=== PATIENT | female | born 1970 | race Caucasian/White ===

== ENCOUNTER 2023-10-08 10:49 | Outpatient (AMB) | payer OTHER, SELFPAY ==
--- NOTE | 2023-10-08 10:50 | A.OFFPC_ITS ---
Vital Signs 10/08/23 11:06 Height 5 ft 4 in Weight 189 lb 2 oz BMI 32.5 BP 104/60 Blood Pressure Location Lt brachial Position Sitting Respiration 16 Pulse 67 Pulse Source Pulse Oximeter Temp 97.9 F Temp Source Oral Pulse Oximetry (%) 95 Oxygen Delivery Method Room Air Intake Visit Reasons: NPV Annual PE Request (takes Medications) Intake Note: patient here for new patient visit and CPE Torch Operator Required: No Is last menstrual period known: No Post menopausal: No Patient : No Allergies ibuprofen Allergy (Mild, Verified 10/08/23 16:10) Unknown amoxicillin Adverse Reaction (Severe, Verified 10/08/23 10:56) Hives co-trimoxazole Allergy (Mild, Uncoded 10/08/23 16:10) Unknown sulpha Allergy (Unknown, Uncoded 10/08/23 10:56) Itching Medication List - Last Reconciled 10/08/23 by Ashia Wetzel, HUMAN RESOURCES DEPARTMENT SUPERVISOR- citalopram 40 mg PO DAILY multivitamin with minerals 10 mL PO DAILY tizanidine 2 mg PO TID Tobacco use date assessed: 10/08/23 Dental Screening Dental Screen Date: 10/08/23 Did you have a dental visit in the last 12 months?: Yes Did you have a dental problem in the last 6 months where you did not have access to dental care?: No Was dental information given to patient?: Patient has dentist HPI HPI Comments History of Present Illness Details 53 y/o F with JERED, MDD, LIZZIE, Leiomyoma o f uterus causing postmenpausal bleeding s/p sleeve gastrectomy, breast reduction, abdominoplasty Health Maintenance: Colon DEXA PAP Mammo Tdap 2008 Specialists: counselor Chiro accupuncture Here today to [facility] care Moved here to [place] in Mar to live closer to [facility] and her . Very limited medical records available to me today. c/o acute on chronic right neck, shoulder and back pain. Reports its been there all my life... no one has been able to figure out the cause. She was recently swimming prior to the current flare and thinks this is the cause. Using massage, stretch, heat, ice, salonpas w/ short lived relief. Thinks she would benefit from a Chiro and Accupuncture referrals. Denies red flag sx. MDD/LIZZIE. Currently on celexa. Has been on this for 8 years. Is active w co unselor. Denies SI/HI. Admits a lot of mental health struggles around her weight. Life long struggle. Even after wt loss surgery does not feel happy. When asked why she wants to lose weight she stated to be healthy and live a long life. Also mentions physical limitations d/t her wt. 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 Has never been on any other meds for mood. Finally, she is on cytomel and levothyroxine w/o a dx of hypothyroid. She has not had thyroid surgery. States she was seeing a hormone specialist who put her on this treatment. States last TSH done 09/04/23 was low . She is having increased hunger, dry eyes and feeling itchy over the last few months. Exam: awake alert NAD Tearful when talking about wt Neck FROM thyroid nonpalp RRR LS CTAB Pain w palp over R SI joint, no spinal tenderness, pain over right scap and bilat traps with palp, no defomity, nonfocal neuro exam Plan Chiropracter and accupuncture referrals placed. Labs from today WNL except TSH < 0.01, T4 0.57; LDL, Vit C and Zinc pending at this time. Repeat thyroid labs in 6 weeks. When euthyroid, can discuss potentially adding Wellbutrin to help her anxiety, eating and wt concerns. RTO 6 weeks with labs done prior. Sooner PRN Message sent via portal at 1600: Hi Grace Labs show a completely suppressed thyroid. Please stop your thyroid medications. I would like to repeat them [they are non- fasting] in 6 weeks. The lab order is in the system, you can stop into the lab to get them done in 6 weeks. Otherwise, so far things look good.' I want to wait to see how you feel after the thyroid normalizes before starting any medications. Ashia Negrete Total time spent caring for the patient today was 46 minutes. This includes time spent before the visit reviewing the chart, time spent during the visit, and time spent after the visit on documentation [facility] Medical History (Updated 10/08/23 @ 16:21 by Ashia Wetzel, HUMAN RESOURCES DEPARTMENT SUPERVISOR-) Depression Headache Palpitation Sinusitis Surgical History (Updated 10/08/23 @ 12:24 by Zoë Sanchez) Gastric bypass status for obesity Hx of breast reduction, elective Family History (Updated 10/08/23 @ 12:18 by Zoë Sanchez) Mother Alcohol abuse FH: mental illness Cancer Father FH: mental illness High cholesterol Cancer Sister FH: mental illness Maternal Grandmother Cancer Social History Housing: House Patient Tobacco Use Status: Never used Tobacco e-Cigarette/Vaping Use: Never Used Second Hand Smoke Exposure: No service: No Current occupational status: retired Current occupational exposures/hazards: No Cognitive needs: No Hearing needs: No Vision needs: Yes Questionnaire PHQ-9 Over the last 2 weeks, how often have you been bothered by any of the following problems? 1. Little interest or pleasure in doing things: not at all 2. Feeling down, depressed, or hopeless: not at all 3. Trouble falling or staying asleep, or sleeping too much: not at all 4. Feeling tired or having little energy: several days 5. Poor appetite or overeating: more than half the days 6. Feeling bad about yourself - or that you are a failure or have let yourself or your family down: not at all 7. Trouble concentrating on things, such as reading the newspaper or watching television: not at all 8. Moving or speaking so slowly that other people could have noticed. Or the opposite - being so fidgety or restless that you have been moving around a lot more than usual: not at all 9. Thoughts that you would be better off or of hurting yourself in some way: not at all Total score: 3 Depression Screening Interpretation: Negative Depression Screening Done: Yes 77565 - PHQ-9 Billing: Yes Source: Developed by Drs. Pranav Quinones, Mally Gutierrez, Luís James and colleagues, with an educational elizabeth from [employer] Thrive Questionnaire Date Thrive assessed: 10/08/23 I am a: Patient What is your living situation today?: I have a steady place to live Within the past 12 months, did the food you bought not last and you didn't have the money to get more?: Never true Within the past 12 months, did you worry whether your food would run out before you got money to buy more?: Never true Do you have trouble paying for medicines?: No Do you have trouble getting transportation to medical appointments?: No Do you have trouble paying your heating and electricity bill?: No Do you have trouble taking care of your child, family member or friend?: No Do you have trouble with day-to-day activities such as bathing, preparing meals, shopping, managing finances, etc.?: No Are you currently unemployed and looking for a job?: No Are you interested in more education?: No THRIVE Score: 0 AUDIT C Alcohol Use Questionnaire (AUDIT-C) 1. How often do you have a drink containing alcohol?: 2-3 times a week 2. How many drinks containing alcohol do you have on a typical day when you are drinking?: 1 or 2 3. How often do you have six or more drinks on one occasion?: Never Total Score: 3 Score Reviewed/Action Taken: Yes LIZZIE-7 AMB Questionnaire LIZZIE-7 Date LIZZIE - 7 assessed: 10/08/23 Feeling nervous, anxious, or on edge: 2 = More than half the days Not being able to stop or control worryin = Several days Worrying too much about different things: 1 = Several days Trouble relaxin = Several days Being so restless that it is hard to sit still: 1 = Several days Becoming easily annoyed or irritable: 1 = Several days Feeling afraid as if something awful might happen: 1 = Several days Total LIZZIE-7 score (0-4 normal; 5-9 mild; 10-14 moderate; 15-21 severe): 8 Source: Developed by Drs. Pranav Quinones, Mally Gutierrez, Luís James and colleagues, with an educational elizabeth from [employer] LIZZIE-7 Assessment Billing LIZZIE-7 Assessment Tool: LIZZIE-7 Assessment 49719 Physical exam (Primary Care) Vital Signs: Last Vital Signs Temp 97.9 F 10/08/23 11:06 Pulse 67 10/08/23 11:06 Resp 16 10/08/23 11:06 BP 104/60 10/08/23 11:06 Pulse Ox 95 10/08/23 11:06 Oxygen Delivery Method Room Air 10/08/23 11:06 BMI result Body Mass Index 32.5 BMI Assessment/Plan discussion: High BMI High, discussed plan: lifestyle Tobacco/Smoking Status: Tobacco use Status Tobacco use date assessed 10/08/23 10/08/23 11:01 Patient Tobacco Use Status Never used Tobacco 10/08/23 11:01 e-Cigarette/Vaping Use Never Used 10/08/23 11:01 PHQ-9: PHQ-9 Score PHQ-9: Total score 3 10/08/23 12:10 Depression Screening Interpretation: Negative Thrive Assessment: Date of Thrive Assessment Date Thrive assessed 10/08/23 10/08/23 12:00 Assessment and Plan Assessment & Plan (1) Neck pain: Code(s): M54.2 - Cervicalgia (2) Low back pain: Code(s): M54.50 - Low back pain, unspecified Qualifiers: Chronicity: chronic Back pain laterality: right Sciatica presence: without sciatica Qualified Code(s): M54.50 - Low back pain, unspecified; G89.29 - Other chronic pain (3) S/P gastric sleeve procedure: Code(s): Z90.3 - Acquired absence of stomach [part of] (4) Low TSH level: Code(s): R79.89 - Other specified abnormal findings of blood chemistry (5) MDD (major depressive disorder), recurrent episode: Code(s): F33.9 - Major depressive disorder, recurrent, unspecified Qualifiers: Major depression episode severity: mild Qualified Code(s): F33.0 - Major depressive disorder, recurrent, mild (6) LIZZIE (generalized anxiety disorder): Code(s): F41.1 - Generalized anxiety disorder (7) Leiomyoma of uterus: Code(s): D25.9 - Leiomyoma of uterus, unspecified Qualifiers: Uterine leiomyoma location: unspecified location Qualified Code(s): D25.9 - Leiomyoma of uterus, unspecified Orders: Orders TSH reflex Free T4 Today Z90.3 - Acquired absence of stomach [part of] Complete Blood Count no Diff Today Z90.3 - Acquired absence of stomach [part of] Hemoglobin A1c Today Z90.3 - Acquired absence of stomach [part of] Zinc Today Z90.3 - Acquired absence of stomach [part of] Phosphorus Today Z90.3 - Acquired absence of stomach [part of] TSH reflex Free T4 11/12/23 R79.89 - Other specified abnormal findings of blood chemistry Comprehensive Met. Panel Today Z90.3 - Acquired absence of stomach [part of] LDL Cholesterol Direct Today Z90.3 - Acquired absence of stomach [part of] Vitamin B12 and Folate Today Z90.3 - Acquired absence of stomach [part of] IRON PROFILE Today Z90.3 - Acquired absence of stomach [part of] Microalbumin, Random (w Creat) Today Z90.3 - Acquired absence of stomach [part of] Vitamin D 25-OH Total Today Z90.3 - Acquired absence of stomach [part of] Vitamin C Today Z90.3 - Acquired absence of stomach [part of] Magnesium Today Z90.3 - Acquired absence of stomach [part of] Referrals Chiropractic Referral M54.2 - Cervicalgia, M54.50 - Low back pain, unspecified Patient Instructions: CLINIC Alternative Medicines -- accupuncture Codi Holcomb [phone] Walk-In Care (Urgent Care): We Make it Easy Walk-in for urgent medical issues such as: ? Seasonal Allergies ? Insect Bites ? Cough ? Diarrhea ? Acute Asthma Attacks ? Back, Knee or Joint Pain ? Ear Infection ? Fever without a Rash ? Headaches ? Nausea ? [place], Rash or Skin Irritation ? Sore Throat ? Sports Physicals ? Vomiting Most insurances are accepted. Patients do not need to be part of the [facility] to seek care at the walk-in clinic. Locations [facility] , [place] [address] ? [phone] [facility] [facility] in [place] provides services to ages 18 and over. Open Friday-Friday: 8 a.m. to 5 p.m. and Friday: 9 a.m. to 3 p.m.* *Hours may vary due to staffing availability. To confirm Walk-In Care hours in [place], please call [phone]. [address] [place] [address] ? [phone] [facility] in [place] provides services to ages 12 and over. Open Friday-Friday: 8 a.m. to 5 p.m. Hours may vary due to staffing availability. To confirm Walk-In Care hours in [place], please call [phone]. LABORATORY SERVICES: [facility] Lab ? Primary Location [address] [place] [address] Friday through Friday 6:00 AM ? 5:00 PM Friday 7:00 AM ? 11:00 AM* [phone] [facility] Lab is centrally located near the front entrance of the [facility] for easy outpatient access. Convenient parking is provided for outpatients. *Hours may vary due to staffing availability. To confirm Laboratory hours for any location, please call [phone]. Offsite Location For your convenience, we offer offsite laboratory draw stations at the following locations: [address] [place] [address] ? [facility] [address] [facility], [address] Friday through Friday 7:30 AM ? 1:00 PM* [phone] *Hours may vary due to staffing availability. To confirm Laboratory hours for any location, please call [phone]. [place] ? [address] Friday through Friday 6:00 AM ? 3:30 PM* Friday 6:30 AM ? 3 PM* [phone] *Hours may vary due to staffing availability. To confirm Laboratory hours for any location, please call [phone] [place] [address] Friday through Friday 7:30 AM ? 4:00 PM* [phone] *Hours may vary due to staffing availability. To confirm Laboratory hours for any location, please call [phone] [place] [address] Friday through 9:00 AM ? 4:00 PM* *Hours may vary due to staffing availability. To confirm Laboratory hours for any location, please call [phone]. Appointments are not necessary. Walk-ins are welcome. Like all the departments throughout the [facility], our Lab undergoes frequent reviews to ensure the quality and accuracy of test results, and our staff takes special pride in its status as a nationally accredited facility. Patient Portal: ONE PATIENT. ONE RECORD. BETTER CARE. [facility] has a fully integrated, cutting-edge mobile electronic health information system that has revolutionized the way we care for our patients and manage our organization. This system improves communication and coordination enabling us to provide safe, higher-quality care, and an overall positive experience for staff and patients. Our first priority, as always, is to deliver the highest quality care possible. The system is running in the background supporting that priority. This portal is for all [facility] services and practices. If you are experiencing any technical difficulties with enrolling or logging into the Patient Portal please complete the [facility] Patient Portal Technical Support Form. [facility] now offers a new secure on-line interactive tool for patients to review their health information ? Patient Portal. This interactive web portal will enable patients and their families to take an active role in their care by providing easy, secure access to their health information via the internet. The Patient Portal provides patients with instant access to their health information, including laboratory results, medications, allergies, demographic information, visit history, and more. In addition to managing their own care, parents and health care proxies with authorized consent will appreciate the ability to access the records of those individuals for whom they provide care. Please note: if you wish to gain access (Proxy) to another patient?s portal, you will be required to come to the Medical Records Department in person at [facility]. Both the patient giving proxy access and the proxy will need to provide photo identification and complete the appropriate authorization. The Patient Portal also allows track their appointments online. The [facility] Patient Portal also saves patients time by allowing them to submit updates to their demographic and contact information prior to their visits. Portal email notifications will also alert patients to any new activity on their portal, such as test results and new appointments. In order to initially enroll in the [facility] Patient Portal, you will need to enter some required information including the following: ? your [facility] Medical Record number ? your personal home email address ? name ? date of Please note: In order to enroll in the [facility] Patient Portal, we need to have your email address on file in your electronic medical record. The email address needs to be specific for one person (yourself) in order for your Portal enrollment to be successful. You can update your email address in person with our Registration staff when you are registering for a hospital visit. Otherwise, you will need to come to the Health Information Management (Medical Records) Department at [facility]. We are open from Friday ? Friday from 7:30 a.m. ? 4:30 p.m. You will be required to present a photo id. Once you have successfully enrolled in the Patient Portal, you will receive a one-time user id and password for the Portal, sent to your email address. This will allow you to log into the Patient Portal within 99 hrs and reset your own logon id and password, and define personal security questions. Once your permanent login and password have been set, you can log into the [facility] Patient Portal at any time via the blue button above or from the Portal Logon button on any page of the [facility] website. [facility] encourage all of our patients to enroll in Patient Portal as it presents a valuable opportunity for patients and their families to actively participate in their care and stay healthy Welcome to [facility]. We look forward to working with you. Coding Level of Care Code New Pt Level 4 (64618) Diagnoses Neck pain M54.2 Chronic right-sided low back pain without sciatica M54.50; G89.29 Chronicity: chronic Back pain laterality: right Sciatica presence: without sciatica S/P gastric sleeve procedure Z90.3 Low TSH level R79.89 Mild episode of recurrent major depressive disorder F33.0 Major depression episode severity: mild LIZZIE (generalized anxiety disorder) F41.1 Uterine leiomyoma, unspecified location D25.9 Uterine leiomyoma location: unspecified location Additional Codes LIZZIE-7 Assessment Billing - LIZZIE-7 Assessment Tool: LIZZIE-7 Assessment [id number] ([id number])
[2023-10-08 11:06] VITALS: BP 104/60; PULSE 67; RESP 16; TEMP 36.6; O2SAT 95; BMI 32.5
== END 2023-10-08 11:45 | disposition home or self-care (01) ==
PROVIDERS: PCP Nurse Practitioner Family; Visit Provider Nurse Practitioner Family
DX: M54.2 Cervicalgia (principal); M54.50 Low back pain, unspecified; G89.29 Other chronic pain; Z90.3 Acquired absence of stomach [part of]; R79.89 Other specified abnormal findings of blood chemistry; F33.0 Major depressive disorder, recurrent, mild; F41.1 Generalized anxiety disorder; D25.9 Leiomyoma of uterus, unspecified
CPT/HCPCS: 99204

== ENCOUNTER 2023-10-08 12:12 | Outpatient (REF) | payer OTHER, SELFPAY ==
[2023-10-08 13:34] LABS: Hematocrit 38.8 % (37.0-47.0); Hemoglobin 13.2 g/dl (12.0-16.0); Mean Corpuscular Hemoglobin 29.4 pg (27.0-33.0); Mean Corpuscular Volume 86.4 fL (80.0-98.0); Mean Platelet Volume 9.6 fL (9.4-12.3); Platelet Count 276 X10*3/uL (160-400); Red Blood Count 4.49 X10*6/uL (4.20-5.50); Red Cell Distribution Width 11.9 % (11.0-16.0); White Blood Count 5.4 X10*3/uL (4.8-10.8)
[2023-10-08 14:07] LABS: Estimated Average Glucose 94 mg/dL; Hemoglobin A1c % 4.9 % (<6.0)
[2023-10-08 14:18] LABS: Creatinine Urine 87.17 mg/dL; Microalbum/Creatinine Ratio Ur 6.8 ug/mg cr (<30)
[2023-10-08 14:24] LABS: Alanine Aminotransferase 23 U/L (0-31); Albumin Level 4.6 g/dL (3.5-5.0); Alkaline Phosphatase 61 U/L (39-117); Anion Gap 12 (12-20); Aspartate Amino Transferase 19 U/L (5-31); Bilirubin Total 0.3 mg/dL (0.0-1.0); Blood Urea Nitrogen 23 mg/dL (9-16); Calcium 9.8 mg/dL (8.4-10.2); Carbon Dioxide 27 mmol/L (22-29); Chloride 107 mmol/L (96-108); Estimated Glomerular Filt Rate > 60; Glucose Random 100 mg/dL (60-115); Iron 86 mcg/dL (30-160); Magnesium 2.3 mg/dL (1.6-2.6); Percent Iron Saturation 32 % (15-50); Phosphorus 4.5 mg/dL (2.7-4.5); Potassium 4.1 mmol/L (3.3-5.1); Sodium 142 mmol/L (135-145); TSH reflex Free T4 < 0.01 uIU/mL (0.32-4.0); Total Iron Binding Capacity 271 mcg/dL (228-428); Total Protein 7.3 g/dL (6.5-8.0); Unsaturated Iron Binding 185 ug/dL; Vitamin D 25-OH Total 54.7 ng/mL (>30)
[2023-10-08 14:30] LABS: Folate 13.4 ng/mL (> or = 4.0); Vitamin B12 535 pg/mL (200-900)
[2023-10-08 15:16] LABS: Free T4 (Free Thyroxine) 0.57 ng/dL (0.71-1.85)
[2023-10-09 13:28] LABS: LDL Cholesterol Direct 123 mg/dL (<100)
[2023-10-11 00:39] LABS: Zinc 63 mcg/dL (60-130)
[2023-10-13 12:29] LABS: Vitamin C 1.9 mg/dL (0.3-2.7)
== END 2023-10-08 12:13 | disposition home or self-care (01) ==
LOC: HO.LAB 12:12
PROVIDERS: PCP Nurse Practitioner Family; Visit Provider Nurse Practitioner Family
DX: Z90.3 Acquired absence of stomach [part of] (principal); Z13.1 Encounter for screening for diabetes mellitus
CPT/HCPCS: 36415; 80053; 82043; 82180; 82306; 82570; 82607; 82746; 83036; 83540; 83721; 83735; 84100; 84439; 84443; 84630; 85027

== ENCOUNTER 2023-11-17 07:32 | Outpatient (REF) | payer BC, SELFPAY | END 2023-11-17 07:33 | disposition home or self-care (01) | LOC: HO.LAB 07:32 | PROVIDERS: PCP Nurse Practitioner Family; Visit Provider Nurse Practitioner Family | DX: R79.89 Other specified abnormal findings of blood chemistry (principal) | CPT/HCPCS: 36415; 84443 ==

== ENCOUNTER 2023-11-18 09:08 | Outpatient (AMB) | payer BC, SELFPAY ==
--- NOTE | 2023-11-18 09:10 | A.OFFPC_ITS ---
Vital Signs 11/18/23 09:14 Height 5 ft 4 in Weight 199 lb BMI 34.2 BP 110/62 Blood Pressure Location Lt brachial Position Sitting Respiration 14 Pulse 61 Pulse Source Pulse Oximeter Pulse Oximetry (%) 97 Oxygen Delivery Method Room Air Intake Visit Reasons: 6 weeks 30 min fu labs/thyroid/anxiety Intake Note: follow up on labs, thyroid and anxiety Allergies ibuprofen Allergy (Mild, Verified 11/18/23 09:13) Unknown amoxicillin Adverse Reaction (Severe, Verified 11/18/23 09:13) Hives co-trimoxazole Allergy (Mild, Uncoded 10/08/23 16:10) Unknown sulpha Allergy (Unknown, Uncoded 10/08/23 10:56) Itching Medication List - Last Reconciled 11/18/23 by MICHAEL Dyer- citalopram 40 mg PO DAILY multivitamin with minerals 10 mL PO DAILY tizanidine 2 mg PO TID Tobacco use date assessed: 11/18/23 Dental Screening Dental Screen Date: 11/18/23 Did you have a dental visit in the last 12 months?: Yes Did you have a dental problem in the last 6 months where you did not have access to dental care?: No Was dental information given to patient?: Patient has dentist HPI HPI Comments History of Present Illness Details 53 y/o F with JERED, MDD, LIZZIE, Leiomyoma o f uterus causing postmenpausal bleeding, chronic neck back and shoulder pain, s/p sleeve gastrectomy, breast reduction, abdominoplasty Health Maintenance: Colon DEXA PAP Mammo Tdap 2008 Specialists: counselor Chiro Here today to fu on labs and to discuss treatments to help with anxiety and weight. Lab review: Labs from 10/08/23 WNL except TSH < 0.01, T4 0.57; LDL, Vit C and Zinc WNL She stopped her thyroid supplements. Repeat TSH normal 1.3 11/17/2023 Since stopping she reports that for she felt a little tired. However this has improved. She was complaining of itchiness which has improved as well. The dry eye complaint is resolved. She also notes some mild improvement in her i ncreased hunger. She has increased protein and fiber in her diet to aid in weight loss. Clinically she has had some weight gain. Discuss starting bupropion to help. She is interested in this. Chronic pain: Chiro and Accupuncture referral placed in the last office visit; went to chiro since last visit + relief. Did try accupuncture w/o relief. MDD/LIZZIE: Continues on citalopram 40 mg daily. Symptoms continue to be present. Exam: awake alert NAD Tearful when talking about wt thyroid nonpalp RRR LS CTAB Plan Start Wellbutrin XL 150 mg to help her anxiety, eating and wt concerns. Educated about the potential side effect of increased anxiety. Educated to notify me if this happens. Continue taking the Celexa. Continue without thyroid supplements as you are euthyroid without any medica tions Continue follow up with chiropractic medicine Please bring your old records to the next appt so that i can review them and place health maintenance orders Return to the office in 6-8 weeks to follow up on the Wellbutrin start, sooner as needed This note is constructed using voice recognition software. While every effort has been made to ensure accuracy in psychiatric registered nurse, still errors may have been included Sometimes, these errors may affect the content or meaning of the given sentence . [facility] Medical History (Updated 11/18/23 @ 09:45 by Ashia Wetzel [facility]) Depression Headache Palpitation Sinusitis Surgical History (Updated 10/08/23 @ 12:24 by Zoë Sanchez) Gastric bypass status for obesity Hx of breast reduction, elective Family History (Updated 10/08/23 @ 12:18 by Zoë Sanchez) Mother Alcohol abuse FH: mental illness Cancer Father FH: mental illness High cholesterol Cancer Sister FH: mental illness Maternal Grandmother Cancer Social History Housing: House Patient Tobacco Use Status: Never used Tobacco e-Cigarette/Vaping Use: Never Used Second Hand Smoke Exposure: No service: No Current occupational status: retired Current occupational exposures/hazards: No Cognitive needs: No Hearing needs: No Vision needs: Yes Questionnaire PHQ-9 Over the last 2 weeks, how often have you been bothered by any of the following problems? 1. Little interest or pleasure in doing things: not at all 2. Feeling down, depressed, or hopeless: not at all 3. Trouble falling or staying asleep, or sleeping too much: not at all 4. Feeling tired or having little energy: several days 5. Poor appetite or overeating: several days 6. Feeling bad about yourself - or that you are a failure or have let yourself or your family down: not at all 7. Trouble concentrating on things, such as reading the newspaper or watching television: not at all 8. Moving or speaking so slowly that other people could have noticed. Or the opposite - being so fidgety or restless that you have been moving around a lot more than usual: not at all 9. Thoughts that you would be better off or of hurting yourself in some way: not at all Total score: 2 Depression Screening Interpretation: Negative Depression Screening Done: Yes 47825 - PHQ-9 Billing: Yes Source: Developed by Drs. Pranav Quinones, Mally Gutierrez, Luís James and colleagues, with an educational elizabeth from [employer]. Thrive Questionnaire Date Thrive assessed: 11/18/23 I am a: Patient What is your living situation today?: I have a steady place to live Within the past 12 months, did the food you bought not last and you didn't have the money to get more?: Never true Within the past 12 months, did you worry whether your food would run out before you got money to buy more?: Never true Do you have trouble paying for medicines?: No Do you have trouble getting transportation to medical appointments?: No Do you have trouble paying your heating and electricity bill?: No Do you have trouble taking care of your child, family member or friend?: No Do you have trouble with day-to-day activities such as bathing, preparing meals, shopping, managing finances, etc.?: No Are you currently unemployed and looking for a job?: No Are you interested in more education?: No Please select the resources that you would like help with: None THRIVE Score: 0 LIZZIE-7 AMB Questionnaire LIZZIE-7 Date LIZZIE - 7 assessed: 11/18/23 Feeling nervous, anxious, or on edge: 0 = Not at all Not being able to stop or control worryin = Not at all Worrying too much about different things: 0 = Not at all Trouble relaxin = Not at all Being so restless that it is hard to sit still: 0 = Not at all Becoming easily annoyed or irritable: 0 = Not at all Feeling afraid as if something awful might happen: 0 = Not at all Total LIZZIE-7 score (0-4 normal; 5-9 mild; 10-14 moderate; 15-21 severe): 0 Source: Developed by Drs. Pranav Quinones, Mally Gutierrez, Luís James and colleagues, with an educational elizabeth from [employer]. LIZZIE-7 Assessment Billing LIZZIE-7 Assessment Tool: LIZZIE-7 Assessment 63180 Physical exam (Primary Care) Vital Signs: Last Vital Signs Pulse 61 11/18/23 09:14 Resp 14 11/18/23 09:14 BP 110/62 11/18/23 09:14 Pulse Ox 97 11/18/23 09:14 Oxygen Delivery Method Room Air 11/18/23 09:14 BMI result Body Mass Index 34.2 Tobacco/Smoking Status: Tobacco use Status Tobacco use date assessed 11/18/23 11/18/23 09:14 Patient Tobacco Use Status Never used Tobacco 11/18/23 09:12 e-Cigarette/Vaping Use Never Used 11/18/23 09:12 PHQ-9: PHQ-9 Score PHQ-9: Total score 2 11/18/23 09:19 Depression Screening Interpretation: Negative Thrive Assessment: Date of Thrive Assessment Date Thrive assessed 11/18/23 11/18/23 09:19 Assessment and Plan Assessment & Plan (1) LIZZIE (generalized anxiety disorder): Code(s): F41.1 - Generalized anxiety disorder (2) MDD (major depressive disorder), recurrent episode: Code(s): F33.9 - Major depressive disorder, recurrent, unspecified Qualifiers: Major depression episode severity: mild Qualified Code(s): F33.0 - Major depressive disorder, recurrent, mild (3) Low TSH level: Code(s): R79.89 - Other specified abnormal findings of blood chemistry (4) Obesity (BMI 30.0-34.9): Code(s): E66.9 - Obesity, unspecified Medications: New bupropion HCl XL 150 mg PO QAM 90 tabs 0RF Coding Level of Care Code Est Pt Level 3 (80623) Diagnoses LIZZIE (generalized anxiety disorder) F41.1 Mild episode of recurrent major depressive disorder F33.0 Major depression episode severity: mild Low TSH level R79.89 Obesity (BMI 30.0-34.9) E66.9 Additional Codes LIZZIE-7 Assessment Billing - LIZZIE-7 Assessment Tool: LIZZIE-7 Assessment 31971 ([id number])
[2023-11-18 09:14] VITALS: BP 110/62; PULSE 61; RESP 14; O2SAT 97; BMI 34.2
== END 2023-11-18 09:40 | disposition home or self-care (01) ==
PROVIDERS: PCP Nurse Practitioner Family; Visit Provider Nurse Practitioner Family
DX: R79.89 Other specified abnormal findings of blood chemistry (principal); E66.9 Obesity, unspecified; Z68.34 Body mass index [BMI] 34.0-34.9, adult; F33.0 Major depressive disorder, recurrent, mild; F41.1 Generalized anxiety disorder
CPT/HCPCS: 96127; 99213

== ENCOUNTER 2024-01-07 09:14 | Outpatient (AMB) | payer BC, SELFPAY ==
--- NOTE | 2024-01-07 07:54 | A.OFFPC_ITS ---
Vital Signs 01/07/24 09:19 Height 5 ft 4 in Weight 199 lb BMI 34.2 BP 118/68 Blood Pressure Location Lt brachial Position Sitting Respiration 13 Pulse 68 Pulse Source Pulse Oximeter Pulse Oximetry (%) 97 Oxygen Delivery Method Room Air Intake Visit Reasons: 6-8 weeks 30 min fu start wellbutrin Intake Note: follow up Allergies ibuprofen Allergy (Mild, Verified 01/07/24 09:26) Unknown amoxicillin Adverse Reaction (Severe, Verified 01/07/24 09:26) Hives co-trimoxazole Allergy (Mild, Uncoded 10/08/23 16:10) Unknown sulpha Allergy (Unknown, Uncoded 10/08/23 10:56) Itching Medication List - Last Reconciled 01/07/24 by Ashia Wetzel, FOOD AND BEVERAGE COORDINATOR- bupropion HCl XL 150 mg PO QAM citalopram 40 mg PO DAILY multivitamin with minerals 10 mL PO DAILY tizanidine 2 mg PO TID Tobacco use date assessed: 11/18/23 Dental Screening Dental Screen Date: 11/18/23 HPI HPI Comments History of Present Illness Details 53 y/o F with JERED, MDD, LIZZIE, Leiomyoma o f uterus causing postmenpausal bleeding (US 2017), chronic neck back and shoulder pain, obesity mild to moderate l4l5 and l5s1 disc space narrowing, ,ild l3l4 disc space narrowing suggestive of DDD Xray 10/18/2014 s/p sleeve gastrectomy, breast reduction, abdominoplasty Health Maintenance: Colon DEXA PAP 04/19/08 repeat 3 years 2013 wn, 2016 wnl endometrial bx mild proliferative endometreium, pap 2018 wnl, pap 2021 wnl Mammo 04/21/28 L breast US with core bx benign nodular fibroademomatoid changes, routine surveillance, 08/31/12 birads 1, 10/18/2014 WNL, 2016 WNL, 12/2017 wnl, 2020 wnl, 2021, 02/17/23 normal Tdap 2009 Flu 01/07/24 Zoster series complete Specialists: counselor Chiro Here today for 8 week fu on Wellbutrin start to help wt loss and mood. Taking in the AM as directed. In the last 3 weeks, has noticed reduced food noise. Wt is stable. Is having hot flashes which is new since stopping thyroid meds. Not feeling increasingly anxious. Does have more energy. Cont on celexa Medical records rec'd but not yet reviewed by me. I will do this after hours and update her on HM items via the portal & order then accordingly Would like flu shot today Needs refill on zanaflex. Exam: awake alert NAD Tearful when talking about wt thyroid nonpalp RRR LS CTAB Plan Increase Wellbutrin XL 150 mg to 300mg help her anxiety, eating and wt concerns. Educated about the potential side effect of increased anxiety. Educated to notify me if this happens. Continue taking the Celexa. Refill on zanaflex sent Flu admin today Return to the office in 8 weeks to follow up on the Wellbutrin increase, sooner as needed Portal message to patient: Hi, Here is what i found after looking at your records. Last Mammogram 02/2023 So would be due 02/2024 Pap 02/2022 normal, repeat 3 years (this would be an ObGyn referral) I did not find a colonoscopy or Bone Density. Tdap vaccine 2008. Due every 10 years. If you are ok with me ordering Mammogram, Colonoscopy , ObGyn referral, bone density test I will do that now. For the Tdap vaccine, we can up that when you come in next, if interested. Please send me portal message back. Ashia Rowley reply at close of note. will update once i hear back from her. This note is constructed using voice recognition software. While every effort has been made to ensure accuracy in retail cosmetics sales counter manager, still errors may have been included Sometimes, these errors may affect the content or meaning of the given sentence . Total time spent caring for the patient today was 30 minutes. This includes time spent before the visit reviewing the chart, time spent during the visit, and time spent after the visit on documentation . [facility] Medical History (Updated 11/18/23 @ 09:45 by Ashia Wetzel, [facility]) Depression Headache Palpitation Sinusitis Surgical History (Updated 10/08/23 @ 12:24 by Zoë Sanchez MA) Gastric bypass status for obesity Hx of breast reduction, elective Family History (Updated 10/08/23 @ 12:18 by Zoë Sanchez MA) Mother Alcohol abuse FH: mental illness Cancer Father FH: mental illness High cholesterol Cancer Sister FH: mental illness Maternal Grandmother Cancer Social History Housing: House Patient Tobacco Use Status: Never used Tobacco e-Cigarette/Vaping Use: Never Used Second Hand Smoke Exposure: No service: No Current occupational status: retired Current occupational exposures/hazards: No Cognitive needs: No Hearing needs: No Vision needs: Yes Questionnaire Thrive Questionnaire Date Thrive assessed: 11/18/23 LIZZIE-7 AMB Questionnaire LIZZIE-7 Date LIZZIE - 7 assessed: 11/18/23 Source: Developed by Drs. Pranav Quinones, Mally Gutierrez, Luís James and colleagues, with an educational elizabeth from [employer]. Physical exam (Primary Care) Vital Signs: Last Vital Signs Pulse 68 01/07/24 09:19 Resp 13 01/07/24 09:19 BP 118/68 01/07/24 09:19 Pulse Ox 97 01/07/24 09:19 Oxygen Delivery Method Room Air 01/07/24 09:19 BMI result Body Mass Index 34.2 Tobacco/Smoking Status: Tobacco use Status Tobacco use date assessed 11/18/23 01/07/24 07:54 Patient Tobacco Use Status Never used Tobacco 01/07/24 07:54 e-Cigarette/Vaping Use Never Used 01/07/24 07:54 Thrive Assessment: Date of Thrive Assessment Date Thrive assessed 11/18/23 01/07/24 07:54 Office Procedures Flu Questionnaire Does the patient have a severe egg allergy?: No Does the patient have severe life threatening allergies?: No Does the patient have a fever or illness today?: No Has the patient ever had Guillain-Mohler Syndrome?: No Has the patient ever had any past reaction to a flu shot?: No Office Procedure Misc Details: G0449 15 MIN OBESITY EDU Office Procedure Billing Code: AMB Procedure Billing Code (G0449 15 MIN OBESITY EDU ) Immunizations Fluarix Triv 5806-7035 (PF) 45 mcg (15 mcg x 3)/0.5 mL IM syringe Performing Provider: PAOLA Dyer [place] [facility] Administered by: Rebekah Julio RN on 01/07/24 09:45 Dose Route Admin Location Dispensed Lot Number Expiration Date [facility] Paralegal Specialist 0.5 mL IM Right Deltoid 0.5 mL [id number] 09/06/24 49981-254-19 [facility] Given Date VIS Provided VIS Publication Date 01/07/24 Single Vaccine 20 Eligibility Eligibility Date Funding Source Not [facility] Eligible 01/07/24 Private Coding Level of Care Code Est Pt Level 4 (94193) Complex EM visit Add On G2211 Diagnoses Obesity (BMI 30.0-34.9) E66.9 LIZZIE (generalized anxiety disorder) F41.1 Mild episode of recurrent major depressive disorder F33.0 Major depression episode severity: mild Chronic right-sided low back pain without sciatica M54.50; G89.29 Back pain laterality: right Chronicity: chronic Sciatica presence: without sciatica CPT Codes Office Procedure - Office Procedure Billing Code: AMB Procedure Billing Code ([id number]) Assessment & Plan Assessment & Plan (1) Obesity (BMI 30.0-34.9): Code(s): E66.9 - Obesity, unspecified Category: Medical Plan: . (2) LIZZIE (generalized anxiety disorder): Code(s): F41.1 - Generalized anxiety disorder Category: Medical Plan: . (3) MDD (major depressive disorder), recurrent episode: Code(s): F33.9 - Major depressive disorder, recurrent, unspecified Category: Medical Qualifiers: Major depression episode severity: mild Qualified Code(s): F33.0 - Major depressive disorder, recurrent, mild Plan: . (4) Low back pain: Code(s): M54.50 - Low back pain, unspecified Category: Medical Qualifiers: Back pain laterality: right Chronicity: chronic Sciatica presence: without sciatica Qualified Code(s): M54.50 - Low back pain, unspecified; G89.29 - Other chronic pain Plan: . Plan . Orders: Orders Influenza 0820-1995 Immunization Today Z23 - Encounter for immunization Medications: New bupropion HCl XL 300 mg PO QAM 90 tabs 0RF Changed From tizanidine 2 mg PO TID To tizanidine 2 mg PO TID PRN 30 tabs 2RF muscle spasticity Discontinued bupropion HCl XL Discontinued Reason: Doctor's Order 150 mg PO QAM 90 tabs 0RF
[2024-01-07 09:19] VITALS: BP 118/68; PULSE 68; RESP 13; O2SAT 97; BMI 34.2
== END 2024-01-07 09:45 | disposition home or self-care (01) ==
LOC: HO.HMCFM 09:15
PROVIDERS: PCP Nurse Practitioner Family; Visit Provider Nurse Practitioner Family
DX: M54.50 Low back pain, unspecified (principal); F33.0 Major depressive disorder, recurrent, mild; E66.9 Obesity, unspecified; Z68.34 Body mass index [BMI] 34.0-34.9, adult; F41.1 Generalized anxiety disorder; G89.29 Other chronic pain

== ENCOUNTER → 2024-01-07 09:14 | Outpatient (BNVA) | payer BC, SELFPAY | PROVIDERS: PCP Nurse Practitioner Family; Visit Provider Nurse Practitioner Family | DX: E66.9 Obesity, unspecified (principal); Z68.34 Body mass index [BMI] 34.0-34.9, adult; F41.1 Generalized anxiety disorder; F33.0 Major depressive disorder, recurrent, mild; G89.29 Other chronic pain; M54.50 Low back pain, unspecified; Z23 Encounter for immunization | CPT/HCPCS: 90471; 90656 ==

== ENCOUNTER 2024-02-20 15:03 | Outpatient (AMB) | payer BC, SELFPAY ==
[2024-02-20 15:15] VITALS: BP 116/70; PULSE 62; O2SAT 98; BMI 34.2
--- NOTE | 2024-02-20 15:15 | AM.OFFWIN_ITS ---
Intake Vital Signs 02/20/24 15:15 Height 5 ft 4 in Weight 199 lb BMI 34.2 BP 116/70 Blood Pressure Location Rt brachial Position Sitting Pulse 62 Pulse Source Pulse Oximeter Pulse Oximetry (%) 98 Intake Visit Reasons: EP LT shoulder pain from a fall Patient Tobacco Use Status: Never used Tobacco Allergies ibuprofen Allergy (Mild, Verified 02/20/24 15:18) Unknown amoxicillin Adverse Reaction (Severe, Verified 02/20/24 15:18) Hives co-trimoxazole Allergy (Mild, Uncoded 10/08/23 16:10) Unknown sulpha Allergy (Unknown, Uncoded 10/08/23 10:56) Itching Do you need a note to return to daycare/school/sports/work: No HPI HPI Comments History of Present Illness Details This is a 53-year-old female with a past medical history of depression presenting for evaluation of left shoulder pain. Patient states she was in [place] last week and slipped on ice on February 13, fell to her knees and reached out with her left hand to catch herself. Patient denies any head injury or loss of consciousness as a result of her fall. Patient states she has had left anterior shoulder pain since that time. She has been taking Tylenol only without relief of her ?soreness?. Patient denies any pain in her left elbow, left wrist or left hand. [facility] Medical History (Updated 02/20/24 @ 15:46 by Graciela Kaplan PA-C) Depression Headache Palpitation Sinusitis Surgical History (Updated 10/08/23 @ 12:24 by Zoë Sanchez MA) Gastric bypass status for obesity Hx of breast reduction, elective Family History (Updated 10/08/23 @ 12:18 by Zoë Sanchez MA) Mother Alcohol abuse FH: mental illness Cancer Father FH: mental illness High cholesterol Cancer Sister FH: mental illness Maternal Grandmother Cancer Social History Housing: House Patient Tobacco Use Status: Never used Tobacco e-Cigarette/Vaping Use: Never Used Second Hand Smoke Exposure: No service: No Current occupational status: retired Current occupational exposures/hazards: No Cognitive needs: No Hearing needs: No Vision needs: Yes Review of Systems Const All systems reviewed & are unremarkable except as noted in HPI and below Reports no additional complaints Eyes Reports no additional complaints ENT Reports no additional complaints Card Reports no additional complaints Resp Reports no additional complaints GI Reports no additional complaints Reports no additional complaints Musc Reports arthralgias (left shoulder) Skin/Breast Reports system reviewed and no additional complaints, except as documented Neuro Reports no additional complaints Psych Reports no additional complaints Endo Reports no additional complaints Sonu/Lymph Reports no additional complaints Aller/Immun Reports no additional complaints Physical Exam Vital Signs: Last Vital Signs Pulse 62 02/20/24 15:15 BP 116/70 02/20/24 15:15 Pulse Ox 98 02/20/24 15:15 BMI result Body Mass Index 34.2 Const General: cooperative, healthy appearing, comfortable, no acute distress, well developed, alert, awake and Physically active Nutritional Appearance: well nourished Orientation/consciousness: patient oriented x3 Limitations: no limitations Skin Lesions: no lesions Trauma: no lacerations or abrasions Wounds: no wounds Neuro General: patient oriented x3 Extrem Left upper extremity: normal to inspection, full ROM, shoulder/upper arm (no left clavicle pain to palpation) Details: inspection abnormal and tenderness (pain with abduction of LUE against resistance); no swelling, no deformity and no unsual warmth, elbow/forearm Details: normal to inspection and normal ROM; no tenderness, no swelling and no unusual warmth and wrist; no cyanosis, no edema and joint enlargement noted Psych Appearance: grossly normal Mental Status: mental status grossly normal Insight: Good insight present (Psych) Judgement: Good judgement present (Psych) Assessment & Plan Assessment & Plan (1) Tendinopathy of left shoulder: Comment: Given this patient's history coupled with her examination there is no bony injury that is suspected and therefore imaging will be deferred. Code(s): M67.912 - Unspecified disorder of synovium and tendon, left shoulder Plan: Prednisone 40mg daily x 5 days; patient will follow-up with her PCP for a reevaluation of her symptoms and evaluation for possible physical therapy referral as needed. Medications: New prednisone 40 mg (2 x 20 mg) PO DAILY 10 tabs 0RF Coding Level of Care Code Est Pt Level 3 (91170) Diagnoses Tendinopathy of left shoulder M67.912 Time Spent (min) 20
== END 2024-02-20 16:26 | disposition home or self-care (01) ==
PROVIDERS: PCP Nurse Practitioner Family; Visit Provider Physician Assistant
DX: M67.912 Unspecified disorder of synovium and tendon, left shoulder (principal)

== ENCOUNTER 2024-03-12 13:10 | Outpatient (AMB) | payer BC, SELFPAY ==
--- NOTE | 2024-03-12 13:13 | A.OFFPC_ITS ---
Vital Signs 03/12/24 13:16 Height 5 ft 4 in Weight 198 lb BMI 34.0 BP 112/68 Blood Pressure Location Rt brachial Position Sitting Respiration 12 Pulse 68 Pulse Source Pulse Oximeter Pulse Oximetry (%) 95 Oxygen Delivery Method Room Air Intake Visit Reasons: f/u med Intake Note: follow up on meds Lead Technologist In Cytogenetics Required: No Allergies ibuprofen Allergy (Mild, Verified 03/12/24 13:26) Unknown amoxicillin Adverse Reaction (Severe, Verified 03/12/24 13:26) Hives co-trimoxazole Allergy (Mild, Uncoded 03/12/24 13:26) Unknown sulpha Allergy (Unknown, Uncoded 03/12/24 13:26) Itching Medication List - Last Reconciled 03/12/24 by Ashia Wetzel, ANALYTICS SENIOR MANAGER- bupropion HCl XL 300 mg PO QAM citalopram 40 mg PO DAILY multivitamin with minerals 10 mL PO DAILY tizanidine 2 mg PO TID PRN Tobacco use date assessed: 11/18/23 Dental Screening Dental Screen Date: 11/18/23 HPI HPI Comments History of Present Illness Details 53 y/o F with JERED, MDD, LIZZIE, Leiomyoma o f uterus causing postmenpausal bleeding (US 2017), chronic neck back and shoulder pain, obesity mild to moderate l4l5 and l5s1 disc space narrowing, ,ild l3l4 disc space narrowing suggestive of DDD Xray 10/18/2014 s/p sleeve gastrectomy, breast reduction, abdominoplasty Health Maintenance: Colon DEXA PAP 04/19/08 repeat 3 years 2012 wn, 2016 wnl endometrial bx mild proliferative endometreium, pap 2018 wnl, pap 2021 wnl Mammo 04/21/28 L breast US with core bx benign nodular fibroademomatoid changes, routine surveillance, 08/31/12 birads 1, 10/18/2014 WNL, 2015 WNL, 12/2017 wnl, 2020 wnl, 2021, 02/17/23 normal Tdap 2009 Flu 01/07/24 Zoster series complete Specialists: counselor Chiro History of Present Illness The patient is a 53-year-old female presenting with follow-up concerns regarding weight loss and shoulder pain with numbness in the left arm. She has been prescribed Wellbutrin, initially at a dose of 150 mg, which was increased to 300 mg. This has helped reduce appetite, particularly in the morning, but she experiences increased hunger towards the evening. The prescription has also aided in managing her anxiety without impacting her sleep. She reports a weight trend in the positive direction, yet seeks a more established routine post- holidays. The shoulder pain and left arm numbness began after a fall on February 17, with a noticeable exacerbation of symptoms thereafter. She notes numbness iin bilat arms when lying on her back. Previous management has included massages and the use of topical agents without significant long-term relief. Exam awake alert NAD neck FROM, pulling sensation over scaps bilat with ROM of neck in all directions, no spinal tenderness, BUE neurovasc intact, CN intact RRR LS CTAB mood and affect approp Plan - Continue with Wellbutrin 300 mg and mo nitor hunger and weight management - Consider switch to a split dosing with SR version if evening hunger persists - Refill prescriptions - Recommend MRI of the cervical spine to assess potential nerve impingement causing symptoms in bilat arms, L>R - Tetanus vaccine administered on the ri ght arm to avoid exacerbation of left shoulder symptoms - Schedule follow-up appointment to revi ew MRI results and revisit the management plan Patient was informed and verbally consented to the use of an ambient scribe for clinic note documentation during this visit. Discussion Notes We discussed the positive effects of Wellbutrin on her appetite and anxiety, with a potential adjustment to an SR version if evening hunger continues. I explained the importance of an MRI to explore neck-related issues that could be contributing to arm numbness and pain. I clarified that nerve issues may require further evaluation by a specialist if the MRI shows significant findings. I reiterated the importance of managing the shoulder and cervical symptoms due to the recent fall. Patient Instructions - Continue Wellbutrin as prescribed and monitor response - Follow up in a few weeks to review MRI results and Wellbutrin effectiveness - Alert the clinic if symptoms worsen or if there are any changes in condition This note is constructed using voice recognition software. While every effort has been made to ensure accuracy in germ drier, still errors may have been included Sometimes, these errors may affect the content or meaning of the given sentence . Total time spent caring for the patient today was 30 minutes. This includes time spent before the visit reviewing the chart, time spent during the visit, and time spent after the visit on documentation [facility] Medical History (Updated 03/12/24 @ 13:39 by Ashia Wetzel, [facility]) Depression Headache Palpitation Sinusitis Surgical History (Updated 10/08/23 @ 12:24 by Zoë Sanchez MA) Gastric bypass status for obesity Hx of breast reduction, elective Family History (Updated 10/08/23 @ 12:18 by Zoë Sanchez MA) Mother Alcohol abuse FH: mental illness Cancer Father FH: mental illness High cholesterol Cancer Sister FH: mental illness Maternal Grandmother Cancer Social History Housing: House Patient Tobacco Use Status: Never used Tobacco e-Cigarette/Vaping Use: Never Used Second Hand Smoke Exposure: No service: No Current occupational status: retired Current occupational exposures/hazards: No Cognitive needs: No Hearing needs: No Vision needs: Yes Questionnaire PHQ-9 Over the last 2 weeks, how often have you been bothered by any of the following problems? 1. Little interest or pleasure in doing things: not at all 2. Feeling down, depressed, or hopeless: not at all 3. Trouble falling or staying asleep, or sleeping too much: not at all 4. Feeling tired or having little energy: several days 5. Poor appetite or overeating: not at all 6. Feeling bad about yourself - or that you are a failure or have let yourself or your family down: not at all 7. Trouble concentrating on things, such as reading the newspaper or watching television: not at all 8. Moving or speaking so slowly that other people could have noticed. Or the opposite - being so fidgety or restless that you have been moving around a lot more than usual: not at all 9. Thoughts that you would be better off or of hurting yourself in some way: not at all Total score: 1 Depression Screening Interpretation: Negative Depression Screening Done: Yes 64531 - PHQ-9 Billing: Yes Source: Developed by Drs. Pranav Quinones, Mally Gutierrez, Luís James and colleagues, with an educational elizabeth from [employer]. Thrive Questionnaire Date Thrive assessed: 03/12/24 I am a: Patient What is your living situation today?: I have a steady place to live Within the past 12 months, did the food you bought not last and you didn't have the money to get more?: Never true Within the past 12 months, did you worry whether your food would run out before you got money to buy more?: Never true Do you have trouble paying for medicines?: No Do you have trouble getting transportation to medical appointments?: No Do you have trouble paying your heating and electricity bill?: No Do you have trouble taking care of your child, family member or friend?: No Do you have trouble with day-to-day activities such as bathing, preparing meals, shopping, managing finances, etc.?: No Are you currently unemployed and looking for a job?: No Are you interested in more education?: No Please select the resources that you would like help with: None Currently or been in a relationship where the following occur: No concerns reported THRIVE Score: 0 AUDIT C Alcohol Use Questionnaire (AUDIT-C) 1. How often do you have a drink containing alcohol?: 2-3 times a week 2. How many drinks containing alcohol do you have on a typical day when you are drinking?: 1 or 2 3. How often do you have six or more drinks on one occasion?: Never Total Score: 3 Score Reviewed/Action Taken: Yes LIZZIE-7 AMB Questionnaire LIZZIE-7 Date LIZZIE - 7 assessed: 03/12/24 Feeling nervous, anxious, or on edge: 1 = Several days Not being able to stop or control worryin = Not at all Worrying too much about different things: 0 = Not at all Trouble relaxin = Several days Being so restless that it is hard to sit still: 0 = Not at all Becoming easily annoyed or irritable: 0 = Not at all Feeling afraid as if something awful might happen: 0 = Not at all Total LIZZIE-7 score (0-4 normal; 5-9 mild; 10-14 moderate; 15-21 severe): 2 Source: Developed by Drs. Pranav Quinones, Mally Gutierrez, Luís James and colleagues, with an educational elizabeth from [employer]. LIZZIE-7 Assessment Billing LIZZIE-7 Assessment Tool: LIZZIE-7 Assessment 38447 Physical exam (Primary Care) Vital Signs: Last Vital Signs Pulse 68 03/12/24 13:16 Resp 12 03/12/24 13:16 BP 112/68 03/12/24 13:16 Pulse Ox 95 03/12/24 13:16 Oxygen Delivery Method Room Air 03/12/24 13:16 BMI result Body Mass Index 34.0 BMI Assessment/Plan discussion: High BMI High, discussed plan: lifestyle Tobacco/Smoking Status: Tobacco use Status Tobacco use date assessed 11/18/23 03/12/24 13:17 Patient Tobacco Use Status Never used Tobacco 03/12/24 13:17 e-Cigarette/Vaping Use Never Used 03/12/24 13:17 PHQ-9: PHQ-9 Score PHQ-9: Total score 1 03/12/24 13:59 Depression Screening Interpretation: Negative Thrive Assessment: Date of Thrive Assessment Date Thrive assessed 03/12/24 03/12/24 13:17 Currently or been in a relationship where the following occur: No concerns reported Immunizations Boostrix Tdap 2.5 Lf unit-8 mcg-5 Lf/0.5 mL intramuscular syringe Performing Provider: PAOLA Dyer Performing Location: [facility] [place] [facility] Administered by: Radha Stallings RN on 03/12/24 13:59 Dose Route Admin Location Dispensed Lot Number Expiration Date [facility] Rod Pointer 0.5 mL IM Right Deltoid 0.5 mL [id number] 05/26/26 84950-131-85 [employer] VIS Given Date VIS Provided VIS Publication Date 03/12/24 Single Vaccine 20 Eligibility Eligibility Date Funding Source Not [facility] Eligible 03/12/24 Private Coding Level of Care Code Est Pt Level 4 (61442) Complex EM visit Add On G2211 Diagnoses Need for Tdap vaccination Z23 Neck pain M54.2 Paresthesia of arm R20.2 Obesity (BMI 30.0-34.9) E66.9 LIZZIE (generalized anxiety disorder) F41.1 Mild episode of recurrent major depressive disorder F33.0 Major depression episode severity: mild Additional Codes LIZZIE-7 Assessment Billing - LIZZIE-7 Assessment Tool: LIZZIE-7 Assessment 51585 ([id number]) PHQ-9 - 65115 - PHQ-9 Billing: Yes ([id number]) Assessment & Plan Assessment & Plan (1) Need for Tdap vaccination: Code(s): Z23 - Encounter for immunization (2) Neck pain: Code(s): M54.2 - Cervicalgia Category: Medical (3) Paresthesia of arm: Code(s): R20.2 - Paresthesia of skin Category: Medical (4) Obesity (BMI 30.0-34.9): Code(s): E66.9 - Obesity, unspecified Category: Medical (5) LIZZIE (generalized anxiety disorder): Code(s): F41.1 - Generalized anxiety disorder Category: Medical (6) MDD (major depressive disorder), recurrent episode: Code(s): F33.9 - Major depressive disorder, recurrent, unspecified Category: Medical Qualifiers: Major depression episode severity: mild Qualified Code(s): F33.0 - M ajor depressive disorder, recurrent, mild Plan . Orders: Orders MR cervical spine wo con Today M54.2 - Cervicalgia, R20.2 - Paresthesia of skin TDaP Immunization Today Z23 - Encounter for immunization Medications: New citalopram 40 mg PO DAILY 90 tabs 2RF Refilled bupropion HCl XL 300 mg PO QAM 90 tabs 0RF tizanidine 2 mg PO TID PRN 30 tabs 2RF muscle spasticity
[2024-03-12 13:16] VITALS: BP 112/68; PULSE 68; RESP 12; O2SAT 95; BMI 34.0
== END 2024-03-12 13:58 | disposition home or self-care (01) ==
PROVIDERS: PCP Nurse Practitioner Family; Visit Provider Nurse Practitioner Family
DX: M54.2 Cervicalgia (principal); F33.0 Major depressive disorder, recurrent, mild; Z68.34 Body mass index [BMI] 34.0-34.9, adult; E66.9 Obesity, unspecified; R20.2 Paresthesia of skin; F41.1 Generalized anxiety disorder; Z23 Encounter for immunization

== ENCOUNTER → 2024-03-12 13:10 | Outpatient (BNVA) | payer BC, SELFPAY | PROVIDERS: PCP Nurse Practitioner Family; Visit Provider Nurse Practitioner Family | DX: M54.2 Cervicalgia (principal); R20.2 Paresthesia of skin; Z23 Encounter for immunization; E66.9 Obesity, unspecified; Z68.34 Body mass index [BMI] 34.0-34.9, adult; F41.1 Generalized anxiety disorder; F33.0 Major depressive disorder, recurrent, mild; Z79.899 Other long term (current) drug therapy | CPT/HCPCS: 90471; 90715; 96127 ==

== ENCOUNTER 2024-03-17 10:32 | Outpatient (REF) | payer BC, SELFPAY ==
--- NOTE | ~2024-03-17 | MM_ITS ---
EXAMINATION: Dual-Energy X-ray Absorptiometry - Bone Density Study HISTORY: Estrogen deficiency TECHNIQUE: [employer] Dual energy absorptiometry (DEXA) of the lumbar spine, total left hip, and femoral neck was performed. COMPARISON: There are no prior studies for comparison. FINDINGS: The bone mineral density of the lumbar spine is 1.303 with a T-score of 1.0, and a Z-score of 1.0. The bone mineral density of the left total hip is 1.081 with a T-score of 0.6, and a Z-score of 0.7. The bone mineral density of the left femoral neck is 1.113 with a T-score of 0.5, and a Z-score of 1.0. MM/XR DEXA axial skeleton IMPRESSION: Based on bone mineral density, and according to World Health Organization (WHO) criteria, the diagnosis is consistent with normal bone mineral density. All bone density values are in grams per centimeter squared. At this facility, the least significant change in BMD with 95% confidence is 0.022 at the lumbar spine, 0.027 at the hip, and 0.023 at the distal 1/3 radius. Electronically signed by: Pranav Choudhury MD 03/18/2024 03:34 PM STEPHAN
--- NOTE | ~2024-03-17 | MM_ITS ---
EXAMINATION: MM SCREENING DIGITAL BREAST TOMOSYNTHESIS, BILATERAL CLINICAL INFORMATION: Screening. Asymptomatic. COMPARISON: Mammography: No prior imaging available for comparison. TECHNIQUE: Digital breast mammography with tomosynthesis is performed in both the craniocaudal and mediolateral oblique views along with computer-aided detection (CAD). FINDINGS: There are scattered areas of fibroglandular density (ACR BI-RADS breast composition Category b). Bilateral reduction mammoplasty changes. Left marker clip. There are no significant masses, abnormal calcifications, or other abnormalities. MM/MM tomosynthesis screening BI IMPRESSION: No mammographic evidence of malignancy. ASSESSMENT: BI-RADS BI-RADS 2 - Benign Findings RECOMMENDATION: Routine annual mammography screening. 1 year F/U This examination should not preclude the clinical evaluation of a suspicious palpable abnormality. This patient's information was entered into a reminder system with a target due date for their next mammogram. Electronically signed by: Prema Clifton DO 04/07/2024 09:47 AM STEPHAN
== END 2024-03-17 10:33 | disposition home or self-care (01) ==
LOC: HO.MAMMO 10:32
PROVIDERS: PCP Nurse Practitioner Family; Visit Provider Nurse Practitioner Family
DX: Z12.31 Encounter for screening mammogram for malignant neoplasm of breast (principal); Z13.820 Encounter for screening for osteoporosis; Z78.0 Asymptomatic menopausal state; Z98.890 Other specified postprocedural states
CPT/HCPCS: 77063; 77067; 77080

== ENCOUNTER → 2024-03-17 11:00 | Outpatient (BNV) | payer BC, SELFPAY | PROVIDERS: PCP Nurse Practitioner Family; Visit Provider Radiology Diagnostic Radiology | DX: Z12.31 Encounter for screening mammogram for malignant neoplasm of breast (principal) | CPT/HCPCS: 77063; 77067 ==

== ENCOUNTER → 2024-04-01 07:51 | Outpatient (BNV) | payer BC, SELFPAY | PROVIDERS: PCP Nurse Practitioner Family; Visit Provider Radiology Diagnostic Radiology | DX: M48.02 Spinal stenosis, cervical region (principal) | CPT/HCPCS: 72141 ==

== ENCOUNTER 2024-04-01 07:56 | Outpatient (REF) | payer BC, SELFPAY ==
--- NOTE | ~2024-04-01 | MR_ITS ---
CLINICAL HISTORY: R20.2 - Paresthesia of skin MR cervical spine without gadolinium Comparison: None Findings: Partially empty sella. Otherwise unremarkable visualized brain. Normal alignment without acute fracture or marrow infiltration. Normal signal intensity of the visualized cord. Mild posterior disc protrusions from C2/C3 to C4/C5. C2/C3: Hvch-jd-zvowtsuf left neural foraminal stenosis. C4/C5 and C5/C6: Moderate bilateral neural foraminal stenosis. C6-C7: Uzdt-nl-hxpnhxvi left neural foraminal stenosis. Otherwise no evidence of significant central canal or neural foraminal stenosis. Multilevel disc dehydration. Moderate disc narrowing at C5/C6 and C6/C7. Visualized soft tissues of the neck are unremarkable. IMPRESSION: No evidence of significant central canal compromise. Zvqz-qw-dshixjqo neural foraminal stenosis noted at several levels. This document has been electronically signed by: Apryl Alejo MD on 04/02/2024 09:34:11
== END 2024-04-01 07:57 | disposition home or self-care (01) ==
LOC: HO.MRI 07:56
PROVIDERS: PCP Nurse Practitioner Family; Visit Provider Nurse Practitioner Family
DX: R20.2 Paresthesia of skin (principal); M54.2 Cervicalgia
CPT/HCPCS: 72141

== ENCOUNTER → 2024-04-06 16:00 | Outpatient (AMB) | payer BC, SELFPAY ==
--- NOTE | 2024-04-06 16:29 | A.OFFPC_ITS ---
Intake Visit Reasons: telehealth for mri review Allergies ibuprofen Allergy (Mild, Verified 04/06/24 16:33) Unknown amoxicillin Adverse Reaction (Severe, Verified 04/06/24 16:33) Hives co-trimoxazole Allergy (Mild, Uncoded 04/06/24 16:33) Unknown sulpha Allergy (Unknown, Uncoded 04/06/24 16:33) Itching Medication List - Last Reconciled 04/06/24 by Ashia Wetzel, [facility]- bupropion HCl XL 300 mg PO QAM citalopram 40 mg PO DAILY gabapentin 100 mg PO TID PRN 30 days multivitamin with minerals 10 mL PO DAILY tizanidine 2 mg PO TID PRN Tobacco use date assessed: 11/18/23 Dental Screening Dental Screen Date: 11/18/23 HPI HPI Comments History of Present Illness Details Susi 53 y/o F with JERED, MDD, LIZZIE, Leiomyoma o f uterus causing postmenpausal bleeding (US 2017), chronic neck back and shoulder pain, obesity mild to moderate l4l5 and l5s1 disc space narrowing, ,ild l3l4 disc space narrowing suggestive of DDD Xray 10/18/2014 s/p sleeve gastrectomy, breast reduction, abdominoplasty The shoulder pain and left arm numbness began after a fall on February 17, with a noticeable exacerbation of symptoms thereafter. She notes numbness in bilat arms when lying on her back. Previous management has included massages and the use of topical agents without significant long-term relief. Cont to have these sx. Friday was the worst its been Did go to chiro that AM and it helped Still has pain but not like it was Neck is worse on top of shoulders L arm hurts when its lifted Right now has pain in axilla but can be on outside on arm Using Aman TID PRN, makes head feely floaty. Using the zanaflex, too. this takes the edge off. The MRI results were reviewed with her in detail to include the incidental finding of the partially empty sella. All questions were answered. The plan will be to proceed with a referral to [facility] pain management for further evaluation and treatment of her neck pain with radiation into her arms status post fall. She can continue to take the gabapentin and muscle relaxer as this seems to be providing some benefit to her. In regards to the partially empty sella a referral will be placed to [facility]'s endocrinology team. We will hold off on additional imaging of the left shoulder at this time per patient request to keep down cost. She mentioned that the end of the call that she had not seen her results from her mammogram done 03/17/2024. She has high levels of anxiety due to a family history of breast cancer in her mom along with history of abnormal mammograms in the past. A message was sent to director of outreach Services to escalated a read and follow up with the patient on this. [address] [address] Magnetic Resonance Report Signed Patient: Grace Toribio MR#: [id number] : 1970 Acct:[id number] Age/Sex: 53 / F ADM Date: 04/01/24 Loc: .MRI Attending Dr: Ashia GUEVARA Ordering Physician: Ashia Wetzel Date of Service: 04/01/24 Procedure(s): MR cervical spine wo con Accession Number(s): [id number] cc: Ashia Wetzel~ CLINICAL HISTORY: R20.2 - Paresthesia of skin MR cervical spine without gadolinium Comparison: None Findings: Partially empty sella. Otherwise unremarkable visualized brain. Normal alignment without acute fracture or marrow infiltration. Normal signal intensity of the visualized cord. Mild posterior disc protrusions from C2/C3 to C4/C5. C2/C3: Ubfd-ab-tihxgody left neural foraminal stenosis. C4/C5 and C5/C6: Moderate bilateral neural foraminal stenosis. C6-C7: Wjwr-ba-qvwrwpfi left neural foraminal stenosis. Otherwise no evidence of significant central canal or neural foraminal stenosis. Multilevel disc dehydration. Moderate disc narrowing at C5/C6 and C6/C7. Visualized soft tissues of the neck are unremarkable. IMPRESSION: No evidence of significant central canal compromise. Wtae-xy-loxmbspg neural foraminal stenosis noted at several levels. This document has been electronically signed by: Apryl Alejo MD on 04/02/2024 09:34:11 Dictated By: Apryl Alejo MD Signed By: <Electronically signed by Apryl Alejo MD in OV> 0135 DD/ TD/TT: 04/02/24933 Secretary Administrative Assistant: This note is constructed using voice recognition software. While every effort has been made to ensure accuracy in obstetrical tech, still errors may have been i ncluded Sometimes, these errors may affect the content or meaning of the given sentence . Total time spent caring for the patient today was 30 minutes. This includes time spent before the visit reviewing the chart, time spent during the visit, and time spent after the visit on documentation, reviewing laboratory results, diagnostic imaging, medications, performing a medically necessary evaluation, counseling on diagnoses, care coordination, ordering appropriate tests, ordering appropriate medications, review of tests performed by other providers, reporting test results with the patient, communication with other healthcare providers. [facility] Medical History (Updated 04/06/24 @ 16:48 by Ashia Wetzel, [facility]) Depression Headache Palpitation Sinusitis Surgical History (Updated 10/08/23 @ 12:24 by Zoë Sanchez MA) Gastric bypass status for obesity Hx of breast reduction, elective Family History (Updated 10/08/23 @ 12:18 by Zoë Sanchez MA) Mother Alcohol abuse FH: mental illness Cancer Father FH: mental illness High cholesterol Cancer Sister FH: mental illness Maternal Grandmother Cancer Social History Housing: House Patient Tobacco Use Status: Never used Tobacco e-Cigarette/Vaping Use: Never Used Second Hand Smoke Exposure: No service: No Current occupational status: retired Current occupational exposures/hazards: No Cognitive needs: No Hearing needs: No Vision needs: Yes Questionnaire Thrive Questionnaire Date Thrive assessed: 03/12/24 LIZZIE-7 AMB Questionnaire LIZZIE-7 Date LIZZIE - 7 assessed: 03/12/24 Source: Developed by Drs. Pranav Quinones, Mally Gutierrez, Luís James and colleagues, with an educational elizabeth from [employer]. Physical exam (Primary Care) Tobacco/Smoking Status: Tobacco use Status Tobacco use date assessed 11/18/23 03/12/24 13:17 Patient Tobacco Use Status Never used Tobacco 03/12/24 13:17 e-Cigarette/Vaping Use Never Used 03/12/24 13:17 Thrive Assessment: Date of Thrive Assessment Date Thrive assessed 03/12/24 03/12/24 13:17 Telehealth Telehealth Telehealth Platform: [employer] Location of provider rendering services: practice address Location of patient: address on file Patient Identification confirmed using: Name, : Yes Telehealth method: voice only Patient verbally consented to treatment: Yes Patient verbally consented to billing insurance company: Yes Patient informed of any privacy concerns related to visit: Yes Coding Level of Care Code Tele Est Pt Level 3 (17102) Complex EM visit Add On G2211 Diagnoses Cervical spondylosis M47.812 Neck pain M54.2 Tendinopathy of left shoulder M67.912 Paresthesia of arm R20.2 Empty sella E23.6 Assessment & Plan Assessment & Plan (1) Cervical spondylosis: Comment: MRI C SPINE D[place] [facility] [place] Code(s): M47.812 - Spondylosis without myelopathy or radiculopathy, cervical region Category: Medical (2) Neck pain: Code(s): M54.2 - Cervicalgia Category: Medical (3) Tendinopathy of left shoulder: Comment: Given this patient's history coupled with her examination there is no bony injury that is suspected and therefore imaging will be deferred. Code(s): M67.912 - Unspecified disorder of synovium and tendon, left shoulder Category: Medical (4) Paresthesia of arm: Code(s): R20.2 - Paresthesia of skin Category: Medical (5) Empty sella: Comment: NOTED ON C SPINE MRI DONE AT [facility] [place] Code(s): E23.6 - Other disorders of pituitary gland Category: Medical Plan . Orders: Referrals Endocrinology Referral E23.6 - Other disorders of pituitary gland Pain Management Referral M47.812 - Spondylosis without myelopathy or radiculopathy, cervical region, M54.2 - Cervicalgia, R20.2 - Paresthesia of skin
== END ==
LOC: HO.HMCFM 16:00
PROVIDERS: PCP Nurse Practitioner Family; Visit Provider Nurse Practitioner Family
DX: M47.812 Spondylosis without myelopathy or radiculopathy, cervical region (principal); M54.2 Cervicalgia; M67.912 Unspecified disorder of synovium and tendon, left shoulder; E23.6 Other disorders of pituitary gland; R20.2 Paresthesia of skin

== ENCOUNTER 2024-04-16 09:44 | Outpatient (REF) | payer BC, SELFPAY ==
--- NOTE | ~2024-04-16 | XR_ITS ---
EXAMINATION: XR SHOULDER, LEFT CLINICAL INFORMATION: M25.512 - Pain in left shoulder COMPARISON: None available. TECHNIQUE: AP external rotation, Grashey, scapular Y, and axillary views of the left shoulder. FINDINGS: Normal bone mineralization. No fracture, dislocation, or suspicious bone lesion. Normal alignment. The glenohumeral joint appears normal. The AC joint appears normal. Spur of the distal clavicular diaphysis superiorly, probable old fracture deformity. Preserved subacromial space. No subacromial spur. Normal soft tissues. XR/XR shoulder LT min 2V IMPRESSION: Normal left shoulder. Electronically signed by: Homero Lin MD 04/16/2024 11:37 AM STEPHAN
== END 2024-04-16 09:45 | disposition home or self-care (01) ==
LOC: HO.XRAY 09:44
PROVIDERS: PCP Nurse Practitioner Family; Referring Provider Nurse Practitioner Family; Visit Provider Nurse Practitioner Family
DX: M25.512 Pain in left shoulder (principal)
CPT/HCPCS: 73030

== ENCOUNTER → 2024-04-16 09:44 | Outpatient (AMB) | payer BC, SELFPAY ==
--- NOTE | 2024-04-16 09:55 | MHC.OFFVIS ---
Vital Signs 04/16/24 09:59 Height 5 ft 4 in Weight 199 lb 8 oz BMI 34.2 BP 107/69 Blood Pressure Location Rt brachial Position Sitting Pulse 78 Pulse Source Pulse Oximeter Intake Visit Reasons: Cervicalgia Intake Note: Pain today 07/17 Supervisor Refining Required: No Allergies ibuprofen Allergy (Mild, Verified 04/06/24 16:33) Unknown NSAIDS (Non-Steroidal Anti-Inflamma Allergy (Unknown, Verified 04/16/24 09:58) Unknown Sulfa (Sulfonamide Antibiotics) Allergy (Unknown, Verified 04/16/24 09:58) Unknown amoxicillin Adverse Reaction (Severe, Verified 04/06/24 16:33) Hives co-trimoxazole Allergy (Mild, Uncoded 04/06/24 16:33) Unknown sulpha Allergy (Unknown, Uncoded 04/06/24 16:33) Itching Medication List - Last Reconciled 04/16/24 by MICHAEL Yap acetaminophen (Tylenol) 650 mg PO Q4H PRN bupropion HCl XL 300 mg PO QAM citalopram 40 mg PO DAILY gabapentin 100 mg PO TID PRN 30 days multivitamin with minerals 10 mL PO DAILY tizanidine 2 mg PO TID PRN HPI HPI Cervicalgia: Details: Patient is a pleasant 53 years old female, left hand dominant, with history of chronic neck and shoulder pain, arthritis, headaches, chronic fatigue, depression, h/o sleeve gastrectomy, breast reduction, abdominoplasty, presents today for initial evaluation of neck and shoulder pain. Patient reports she fell forward in February 2024 with persistent neck and left shoulder pain with associated left arm numbness. She also reports numbness in her both arms when she is lying on her back. She is currently undergoing chiropractic manipulation therapy with some temporary relief. She also tried muscle relaxant, gabapentin, chiropractic adjustments, massage therapy, acupuncture and TENS unit in the past with minimal relief. Patient is allergic to NSAIDs and also has history of bariatric surgery. Denies previous spine or shoulder surgery or injections. Neck pain is predominantly axial with muscle spasms and limited left shoulder range of motion. Pain affects her daily activities and functioning, movements, sleep, mood, and social interactions. Patient is retired. Reports increased neck pain with computer use or bending neck forward or left arm use. Cervical spine MRI is noted below. Denies any fever or chills, dizziness, shortness of breath, chest pain, cough, gait instability, weakness, bladder or bowel dysfunction or saddle anesthesia. Oswestry Neck Disability Index Score=17 (moderate disability) Location: Neck and left shoulder pain Duration: Chronic pain for many years since teenager years, mechanical fall 02/19/24 Characteristics of symptom or complaint: Aching, numbness, tingling, burning, stabbing, shooting, tightness, tiring Aggravating or associated factors: Movements, ROM, sleeping on the left side or supine, computer work Relieving factors: Tizanidine, Tylenol, gabapentin, heat/cold therapy, CBD, rest Treatment: Chiropractic therapy, TENS unit, massages, acupuncture, cervical spine MRI [facility] Medical History (Updated 04/16/24 @ 10:54 by MICHAEL Yap) Depression Headache Palpitation Sinusitis Surgical History Hx of cholecystectomy (~1986) Gastric bypass status for obesity (~2018) Hx of breast reduction, elective (~1999) Family History Mother Alcohol abuse FH: mental illness Cancer Father FH: mental illness High cholesterol Cancer Sister FH: mental illness Maternal Grandmother Cancer Social History Housing: House Alcohol intake: current Alcohol intake frequency: a few times a week Patient Tobacco Use Status: Never used Tobacco e-Cigarette/Vaping Use: Never Used Second Hand Smoke Exposure: No Use of substances other than those prescribed or required for medical reasons: Yes Substance Use Type: Other Substance Use Type Other:: CBD service: No Current occupational status: retired Current occupational exposures/hazards: No Cognitive needs: No Hearing needs: No Vision needs: Yes Review of Systems Const All systems reviewed & are unremarkable except as noted in HPI and below Physical Exam Vital Signs: Last Vital Signs Pulse 78 04/16/24 09:59 BP 107/69 04/16/24 09:59 BMI result Body Mass Index 34.2 General: Appears afebrile. Alert and oriented. Mood and affect appropriate. Follows and participates in conversation appropriately. Respiratory effort is unlabored. No cough. Able to transition from sit to stand unassisted. Ambulates with bilaterally normal heel strike and toe off. Neck Other: Patient with decreased cervical ROM in all planes/especially with left lateral rotation and bending. Reports increased pain with cervical flexion. Spurling compression test negative. Pain is unchanged by Spurling maneuver with retraction. Elvey's tension test negative bilaterally. Lhermitte's test was negative. DTR intact, +2 and symmetrical. Patient demonstrated 5/5 right and 4/5 left motor strength of bilateral upper extremities. 2 + radial pulses. Significant tightness throughout left upper trapezius as well as TTP throughout bilateral upper trapezius muscles. No paravertebral tenderness over facet joints bilaterally. Multiple taut bands palpated throughout bilateral upper trapezius muscles. Neck: Yes normal visual inspection, Yes no lymphadenopathy, Yes supple, No anterior neck swelling, Yes no JVD, No prominent supraclavicular fat pad and Yes prominent dorsocervical fat pad Back/Spine/Pelvis Cervical Spine: normal cervical lordosis, cervical ROM normal, cervical muscular tenderness, pain with cervical ROM, No Cervical spine scars present, cervical spasm, No Cervical spine tenderness and No step off deformity Thoracic/Lumbar Spine: thoracic and lumbar spine normal to inspection, No Thoracic/lumbar spine scar(s), Lasegue's sign negative, straight leg raise negative bilaterally, No thoracic spinal tenderness and No lumbar spinal tenderness Extrem General: Yes capillary refill normal, Yes no clubbing, cyanosis or edema and Yes no calf tenderness Left upper extremity: shoulder/upper arm (difficulty with overhead reach or reaching her back pocket due to pain) Details: inspection abnormal, tenderness Location: of the A-C joint, over the biceps tendon and over the subacromial bursa and axillary nerve sensory function normal; no swelling, no ecchymosis, no crepitus, no deformity and no unsual warmth Results Reviewed Results Reviewed: MR cervical spine wo con 04/02/24 CLINICAL HISTORY: R20.2 - Paresthesia of skin MR cervical spine without gadolinium Comparison: None Findings: Partially empty sella. Otherwise unremarkable visualized brain. Normal alignment without acute fracture or marrow infiltration. Normal signal intensity of the visualized cord. Mild posterior disc protrusions from C2/C3 to C4/C5. C2/C3: [id number]-zbbntqdd left neural foraminal stenosis. C4/C5 and C5/C6: Moderate bilateral neural foraminal stenosis. C6-C7: Enht-sb-iokfarqn left neural foraminal stenosis. Otherwise no evidence of significant central canal or neural foraminal stenosis. Multilevel disc dehydration. Moderate disc narrowing at C5/C6 and C6/C7. Visualized soft tissues of the neck are unremarkable. IMPRESSION: No evidence of significant central canal compromise. Lepw-to-bsxaqzvj neural foraminal stenosis noted at several levels. XR SHOULDER, LEFT 04/16/24 CLINICAL INFORMATION: M25.512 - Pain in left shoulder COMPARISON: None available. TECHNIQUE: AP external rotation, Grashey, scapular Y, and axillary views of the left shoulder. FINDINGS: Normal bone mineralization. No fracture, dislocation, or suspicious bone lesion. Normal alignment. The glenohumeral joint appears normal. The AC joint appears normal. Spur of the distal clavicular diaphysis superiorly, probable old fracture deformity. Preserved subacromial space. No subacromial spur. Normal soft tissues. IMPRESSION: Normal left shoulder. Assessment & Plan Assessment & Plan (1) Left shoulder pain: Code(s): M25.512 - Pain in left shoulder Category: Medical (2) Cervical spondylosis: Comment: MRI C SPINE DONE AT [facility] Code(s): M47.812 - Spondylosis without myelopathy or radiculopathy, cervical region Category: Medical (3) Disc disease, degenerative, cervical: Code(s): M50.30 - Other cervical disc degeneration, unspecified cervical region Category: Medical (4) Muscle spasms of neck: Code(s): M62.838 - Other muscle spasm Category: Medical (5) Neck pain: Code(s): M54.2 - Cervicalgia Category: Medical Plan Cervical spine MRI imaging reports reviewed with patient today. Left shoulder xray was obtained after today's visit and is normal except spur of the distal clavicular diaphysis superiorly, probable old fracture deformity. Patient will pursue formal physical therapy and acupunture therapy as initial steps. If no relief, will consider left shoulder MRI, diagnostic cervical medial branch blocks and therapeutic neck and shoulder injections. We also discussed neuromodulation with Sprint PNS trial and RFA procedure for a longer pain control. Informational pamphlets provided to patient. Discussed importance of good posture, adequate hydration, regular stretching exercises, continue heat or cold therapy as needed, tizanidine, Tylenol, and gabapentin. All questions and concerns have been answered and patient agreed with the treatment plan. Follow-up after PT and sooner as needed. Orders: Orders PT Evaluation and Treatment 04/16/24 M25.512 - Pain in left shoulder, M47.812 - Spondylosis without myelopathy or radiculopathy, cervical region, M50.30 - Other cervical disc degeneration, unspecified cervical region, M62.838 - Other muscle spasm XR shoulder LT min 2V 04/16/24 M25.512 - Pain in left shoulder Referrals Acupuncture Referral M25.512 - Pain in left shoulder, M47.812 - Spondylosis without myelopathy or radiculopathy, cervical region, M50.30 - Other cervical disc degeneration, unspecified cervical region, M54.2 - Cervicalgia, M62.838 - Other muscle spasm Coding Level of Care Code New Pt Level 4 (79662) Complex EM visit Add On G2211 Diagnoses Left shoulder pain M25.512 Cervical spondylosis M47.812 Disc disease, degenerative, cervical M50.30 Muscle spasms of neck M62.838 Neck pain M54.2
== END | disposition home or self-care (01) ==
PROVIDERS: PCP Nurse Practitioner Family; Referring Provider Nurse Practitioner Family; Visit Provider Nurse Practitioner Family
CPT/HCPCS: 99204

== ENCOUNTER → 2024-04-16 11:15 | Outpatient (BNV) | payer BC, SELFPAY | PROVIDERS: PCP Nurse Practitioner Family; Referring Provider Nurse Practitioner Family; Visit Provider Radiology Diagnostic Radiology | DX: M25.512 Pain in left shoulder (principal) | CPT/HCPCS: 73030 ==

== ENCOUNTER 2024-05-06 07:48 | Outpatient (AMB) | payer BC, SELFPAY ==
--- NOTE | 2024-05-06 07:50 | A.OFFVIS_ITS ---
Vital Signs 05/06/24 07:51 Height 5 ft 4 in Weight 204 lb 9.423 oz BMI 35.1 BP 96/64 Blood Pressure Location Lt brachial Position Sitting Pulse 60 Pulse Source Pulse Oximeter Pulse Oximetry (%) 96 Oxygen Delivery Method Room Air Intake Visit Reasons: Other disorders of pituitary gland Intake Note: New patient present today for Other disorders of pituitary gland. Communicable Disease Specialist Required: No Accompanied by: Self / Same As Patient Allergies ibuprofen Allergy (Mild, Verified 05/06/24 07:55) Unknown NSAIDS (Non-Steroidal Anti-Inflamma Allergy (Unknown, Verified 05/06/24 07:55) Unknown Sulfa (Sulfonamide Antibiotics) Allergy (Unknown, Verified 05/06/24 07:55) Unknown amoxicillin Adverse Reaction (Severe, Verified 05/06/24 07:55) Hives co-trimoxazole Allergy (Mild, Uncoded 05/06/24 07:55) Unknown sulpha Allergy (Unknown, Uncoded 05/06/24 07:55) Itching Medication List - Last Reconciled 05/06/24 by Eliana Myers MD acetaminophen (Tylenol) 650 mg PO Q4H PRN bupropion HCl XL 300 mg PO QAM citalopram 40 mg PO DAILY gabapentin 100 mg PO TID PRN 30 days multivitamin with minerals 10 mL PO DAILY tizanidine 2 mg PO TID PRN HPI Comments Details: 53 year old female here today for evaluation of partially empty sella. MRI cervical spine done Mar 2024 showed partially empty sella, was done due to left shoulder pain. She has a history of thyroid hormone therapy for weight loss and experienced hyperthyroidism while on the medication. After cessation in November 2023, she experienced a 10-pound weight gain and stability until a recent 5-pound increase in may 04. Endorses dizziness and lightheadedness, once a week, usually when standing , when turns around. not worsening , happned a couple of times, self resolving . Doesnt check BP at home Gained 10 lbs after stopping levothyroxine inS2023, and then weight has remained stable. No nausea or vomiting No abd pain No change in ring size , has noticed a half a size up on shoe size in winter 2023 No nipple discharge 1 pregnacy , no issues with feritlity Postmenopausal since age 48, regular periods before that but started having menorrhagia and had endometrial ablation No excessive thirst or urination Constipation, is chronic. Reports some heat intolerance , no hot flashes, some increased diaphoresis Feels some increased low mood due to seasonal depression No vision chnages, reports headaches, not new , back of the neck and sinus issues ROS -General: Reports weight gain - Neurological: Reports dizziness and lightheadedness once weekly - Gastrointestinal: Reports chronic constipation - Reproductive: Denies current fertility issues; menopause five years ago - Cardiovascular: Denies excessive thirst or urination - Endocrine: Reports feeling hotter than usual, frequent hot flashes Physical exam General: sitting comfortably in no acute distress HEENT: normocephalic/atraumatic, EOM intact, intact visual ramirez grossly Neck: supple, symmetrical, no thyromegaly , Cardiac: normal heart sounds Pulm: normal breath sounds B/L, no added breath sounds Abd: not distended, no tenderness, no abnormal striae Extremities: no edema, no signs of myxedema Laboratory Tests 10/08/23 11/17/23 12:30 07:43 TSH < 0.01 L 1.30 Free T4 0.57 L MR cervical spine without gadolinium 04/02/24 Comparison: None Findings: Partially empty sella. Otherwise unremarkable visualized brain. Normal alignment without acute fracture or marrow infiltration. Normal signal intensity of the visualized cord. Mild posterior disc protrusions from C2/C3 to C4/C5. C2/C3: Yzrt-rg-gidtgibe left neural foraminal stenosis. C4/C5 and C5/C6: Moderate bilateral neural foraminal stenosis. C6-C7: Wobj-xl-knzobibm left neural foraminal stenosis. Otherwise no evidence of significant central canal or neural foraminal stenosis. Multilevel disc dehydration. Moderate disc narrowing at C5/C6 and C6/C7. Visualized soft tissues of the neck are unremarkable. IMPRESSION: No evidence of significant central canal compromise. Zeec-qi-uvttqwgn neural foraminal stenosis noted at several levels. This document has been electronically signed by: Apryl Alejo MD on 04/02/2024 09:34:11 [facility] Medical History (Updated 04/16/24 @ 10:54 by MICHAEL Yap) Depression Headache Palpitation Sinusitis Surgical History Hx of cholecystectomy (~1986) Gastric bypass status for obesity (~2018) Hx of breast reduction, elective (~1999) Family History Mother Alcohol abuse FH: mental illness Cancer Father FH: mental illness High cholesterol Cancer Sister FH: mental illness Maternal Grandmother Cancer Social History Housing: House Alcohol intake: current Alcohol intake frequency: a few times a week Patient Tobacco Use Status: Never used Tobacco e-Cigarette/Vaping Use: Never Used Second Hand Smoke Exposure: No Substance Use Type: Other service: No Current occupational status: retired Current occupational exposures/hazards: No Cognitive needs: No Hearing needs: No Vision needs: Yes Physical Exam Vital Signs: Last Vital Signs Pulse 60 05/06/24 07:51 BP 96/64 05/06/24 07:51 Pulse Ox 96 05/06/24 07:51 Oxygen Delivery Method Room Air 05/06/24 07:51 BMI result Body Mass Index 35.1 Assessment & Plan Assessment & Plan (1) Empty sella: Comment: NOTED ON C SPINE MRI DONE AT [facility] [place] Code(s): E23.6 - Other disorders of pituitary gland Category: Medical Plan: 53-year-old female here today for evaluation of partially empty sella noted on MRI cervical spine done for left shoulder pain in March 2024. This was not a dedicated pituitary MRI, I reviewed the images myself, and while I do see a partially empty sella, it would be better to do a dedicated MRI of the pituitary to further evaluate this. Patient does not have any signs or symptoms of,from some intermittent dizziness recently, to suggest pituitary insufficiency however we will do a detail pituitary panel to further evaluate this. During my consultation, I explained the incidental finding of a partially empty sella from the MRI and its implications, emphasizing the need for further evaluation with a brain MRI to assess the pituitary gland. I discussed repeating thyroid function labs to confirm no recurrence of hyperthyroidism following c essation of inappropriate thyroid medication used for weight loss. I reviewed potential causes and management strategies for her reported dizziness, highlighting the importance of assessing pituitary hormones. We also discussed lifestyle modifications to manage hot flashes and strategized approaches to weight management. Risks of chronic unnecessary thyroid hormone could increase osteoporosis and cardiac arrhythmias were also noted, and I advised against such practices. Plan: -MRI pituitary ordered -ordered pituitary panel -follow up in 8 weeks to discuss results Plan I spent 45 minutes in reviewing the record, seeing the patient and documenting in the medical record. Orders: Orders MR head/brain wo/w con Today E23.6 - Other disorders of pituitary gland Estradiol Ultra Sensitive Today E23.6 - Other disorders of pituitary gland Prolactin Today E23.6 - Other disorders of pituitary gland Cortisol Random Today E23.6 - Other disorders of pituitary gland Adrenocorticotropic Hormone Today E23.6 - Other disorders of pituitary gland Thyroid Stimulating Hormone Today E23.6 - Other disorders of pituitary gland Alpha Subunit Today E23.6 - Other disorders of pituitary gland Follicle Stimulating Hormone Today E23.6 - Other disorders of pituitary gland Lutenizing Hormone Today E23.6 - Other disorders of pituitary gland IGF-1 (Somatomedin C) Today E23.6 - Other disorders of pituitary gland Human Growth Hormone Today E23.6 - Other disorders of pituitary gland Free T4 (Free Thyroxine) Today E23.6 - Other disorders of pituitary gland Patient Instructions: Do MRI brain Do [facility] 8 AM labs Follow up in 8 weeks to discuss results Coding Level of Care Code New Pt Level 4 (28646) Diagnoses Empty sella E23.6 Time Spent (min) 45
[2024-05-06 07:51] VITALS: BP 96/64; PULSE 60; O2SAT 96; BMI 35.1
== END 2024-05-06 09:02 | disposition home or self-care (01) ==
PROVIDERS: PCP Nurse Practitioner Family; Visit Provider Student in an Organized Health Care Education/Training Program
DX: E23.6 Other disorders of pituitary gland (principal)
CPT/HCPCS: 99204

== ENCOUNTER → 2024-05-06 07:48 | Outpatient (BNVA) | payer BC, SELFPAY | PROVIDERS: PCP Nurse Practitioner Family; Visit Provider Student in an Organized Health Care Education/Training Program ==

== ENCOUNTER 2024-05-10 08:29 | Outpatient (AMB) | payer BC, SELFPAY ==
--- NOTE | 2024-05-10 08:32 | A.OFFPC_ITS ---
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 Allergies ibuprofen Allergy (Mild, Verified 05/10/24 08:53) Unknown NSAIDS (Non-Steroidal Anti-Inflamma Allergy (Unknown, Verified 05/10/24 08:53) Unknown Sulfa (Sulfonamide Antibiotics) Allergy (Unknown, Verified 05/10/24 08:53) Unknown amoxicillin Adverse Reaction (Severe, Verified 05/10/24 08:53) Hives co-trimoxazole Allergy (Mild, Uncoded 05/10/24 08:53) Unknown sulpha Allergy (Unknown, Uncoded 05/10/24 08:53) Itching Medication List - Last Reconciled 05/10/24 by MICHAEL Dyer- acetaminophen (Tylenol) 650 mg PO Q4H PRN bupropion HCl XL 300 mg PO QAM citalopram 40 mg PO DAILY gabapentin 100 mg PO TID PRN 30 days multivitamin with minerals 10 mL PO DAILY tizanidine 2 mg PO TID PRN Tobacco use date assessed: 05/10/24 Dental Screening Dental Screen Date: 05/10/24 Did you have a dental visit in the last 12 months?: Yes Did you have a dental problem in the last 6 months where you did not have access to dental care?: No Was dental information given to patient?: Patient has dentist HPI HPI Comments History of Present Illness Details Susi 53 y/o F with JERED, MDD, LIZZIE, Leiomyoma o f uterus causing postmenpausal bleeding (US 2017), chronic neck back and shoulder pain, obesity mild to moderate l4l5 and l5s1 disc space narrowing, ,ild l3l4 disc space narrowing suggestive of DDD Xray 10/18/2014, empty sella s/p sleeve gastrectomy, breast reduction, abdominoplasty History of Present Illness - The patient is a 53-year-old female pr esenting for the management of weight loss post-Wellbutrin therapy initiation. Her appetite has improved. Mood stable. Concurrently, she seeks attention for left shoulder pain, triggered by a fall and enduring since. The pain disrupts her functionality, particularly with sustained activities, and she notes exacerbation during nighttime and morning. There is a plan for an MRI and possible physical therapy intervention to address this issue. Despite Gabapentin aiding pain relief, she worries about future weight gain. Managed by [facility] pain mgmt, consult note reviewed. Empty sella- incidental MRI finding managed by Endo, consult note reviewed; management plan incorporates follow-ups, including a proposed MRI & labs. Exam awake alert NAD RRR LS CTAB Tearful but appropriate Discussion Notes In discussing the patient's ongoing weight loss, we evaluated the efficacy of Wellbutrin and its impact on her appetite. Increase wellbutrin to 450mg QD. We addressed the max dosage of Wellbutrin, being mindful of side effect risks if exceeded. Regarding shoulder pain, management includes pursuing physical therapy as a non-surgical option. Gabapentin's role in pain management was clarified, noting non-impactful weight gain with current dosing. FU with [facility] pain mgmt. We discussed incidental findings on prior imaging, leading to the decision to conduct a brain MRI specific to the pituitary to preempt any underlying concerns. Endocrinological assessments previously negated pituitary pathology symptoms, yet reaffirmed follow-up plans, ensuring comprehensive oversight of potential irregularities. MRI authorizations and scheduling transitions, as fac ilitated through ongoing inter-specialty communication, were elaborated upon. Assessment and Plan 1. Weight Loss:Increase wellbutrin to 45 0 mg,. Continual assessment is suggested. 2. Pain in Left Shoulder: Persistent maximino n's etiology involves a past fall; physical therapy precedes surgical consideration. Await MRI for diagnostic clarity. FU pain mgmt 3. Hyperthyroidism (resolved): Labs impl y resolution post medication cessation, negating immediate intervention. FU Endo 4. Possible Pituitary Lesion: MRI consid eration aligns with ensuring detailed assessment, awaiting insurance confirmation for scheduling. FU Endo 5. Anxiety: Stabilization noted under cu rrent regimen. Periodic review essential for mental health assurance. Consent Patient was informed and verbally consented to the use of an ambient scribe for clinic note documentation during this visit. Total time spent caring for the patient today was 42 minutes. This includes time spent before the visit reviewing the chart, time spent during the visit, and time spent after the visit on documentation, reviewing laboratory results, diagnostic imaging, medications, performing a medically necessary evaluation, counseling on diagnoses, care coordination, ordering appropriate tests, ordering appropriate medications, review of tests performed by other providers, reporting test results with the patient, communication with other healthcare providers. RTO 8 WEEKS TO FU ON WELLBUTRIN/WT LOSS , SOONER PRN PFSH Medical History (Updated 05/10/24 @ 09:47 by Ashia Wetzel, [facility]) Depression Headache Palpitation Sinusitis Surgical History Hx of cholecystectomy (~1986) Gastric bypass status for obesity (~2018) Hx of breast reduction, elective (~1999) Family History Mother Alcohol abuse FH: mental illness Cancer Father FH: mental illness High cholesterol Cancer Sister FH: mental illness Maternal Grandmother Cancer Social History Housing: House Alcohol intake: current Alcohol intake frequency: a few times a week Patient Tobacco Use Status: Never used Tobacco e-Cigarette/Vaping Use: Never Used Second Hand Smoke Exposure: No Substance Use Type: Other service: No Current occupational status: retired Current occupational exposures/hazards: No Cognitive needs: No Hearing needs: No Vision needs: Yes Questionnaire PHQ-9 Over the last 2 weeks, how often have you been bothered by any of the following problems? 74784 - PHQ-9 Billing: Patient declined-do not bill Source: Developed by Drs. Pranav Quinones, Mally Gutierrez, Luís James and colleagues, with an educational elizabeth from [employer]. Thrive Questionnaire Date Thrive assessed: 05/10/24 I am a: Patient What is your living situation today?: I have a steady place to live Within the past 12 months, did the food you bought not last and you didn't have the money to get more?: Never true Within the past 12 months, did you worry whether your food would run out before you got money to buy more?: Never true Do you have trouble paying for medicines?: No Do you have trouble getting transportation to medical appointments?: No Do you have trouble paying your heating and electricity bill?: No Do you have trouble taking care of your child, family member or friend?: No Do you have trouble with day-to-day activities such as bathing, preparing meals, shopping, managing finances, etc.?: No Are you currently unemployed and looking for a job?: No Are you interested in more education?: No Please select the resources that you would like help with: None Currently or been in a relationship where the following occur: No concerns reported THRIVE Score: 0 LIZZIE-7 AMB Questionnaire LIZZIE-7 Date LIZZIE - 7 assessed: 05/10/24 Feeling nervous, anxious, or on edge: 0 = Not at all Not being able to stop or control worryin = Not at all Worrying too much about different things: 0 = Not at all Trouble relaxin = Not at all Being so restless that it is hard to sit still: 0 = Not at all Becoming easily annoyed or irritable: 0 = Not at all Feeling afraid as if something awful might happen: 0 = Not at all Total LIZZIE-7 score (0-4 normal; 5-9 mild; 10-14 moderate; 15-21 severe): 0 Source: Developed by Drs. Pranav Quinones, Mally Gutierrez, Luís James and colleagues, with an educational elizabeth from [employer]. LIZZIE-7 Assessment Billing LIZZIE-7 Assessment Tool: LIZZIE-7 Assessment 76924 Physical exam (Primary Care) Vital Signs: Last Vital Signs Temp 97.2 F 05/10/24 08:35 Pulse 71 05/10/24 08:35 Resp 13 05/10/24 08:35 BP 134/72 05/10/24 08:35 Pulse Ox 98 05/10/24 08:35 Oxygen Delivery Method Room Air 05/10/24 08:35 BMI result Body Mass Index 34.2 Tobacco/Smoking Status: Tobacco use Status Tobacco use date assessed 05/10/24 05/10/24 08:37 Patient Tobacco Use Status Never used Tobacco 05/10/24 08:32 e-Cigarette/Vaping Use Never Used 05/10/24 08:32 Thrive Assessment: Date of Thrive Assessment Date Thrive assessed 05/10/24 05/10/24 08:32 Currently or been in a relationship where the following occur: No concerns reported Office Procedures [place] [facility] Details: G0449 15 MINUTE OBESITY EDUCATION Office Procedure Billing Code: AMB Procedure Billing Code (G0449) Coding Level of Care Code Est Pt Level 5 (35150) Complex EM visit Add On G2211 Diagnoses Empty sella E23.6 LIZZIE (generalized anxiety disorder) F41.1 Chronic left shoulder pain M25.512; G89.29 Chronicity: chronic Mild episode of recurrent major depressive disorder F33.0 Major depression episode severity: mild Obesity (BMI 30.0-34.9) E66.9 CPT Codes Office Procedure - Office Procedure Billing Code: AMB Procedure Billing Code ([id number]) Additional Codes LIZZIE-7 Assessment Billing - LIZZIE-7 Assessment Tool: LIZZIE-7 Assessment [id number] ([id number]) Assessment & Plan Assessment & Plan (1) Empty sella: Comment: NOTED ON C SPINE MRI DONE AT [facility] Code(s): E23.6 - Other disorders of pituitary gland Category: Medical (2) LIZZIE (generalized anxiety disorder): Code(s): F41.1 - Generalized anxiety disorder Category: Medical (3) Left shoulder pain: Code(s): M25.512 - Pain in left shoulder Category: Medical Qualifiers: Chronicity: chronic Qualified Code(s): M25.512 - Pain in left shoulder; G89.29 - Other chronic pain (4) MDD (major depressive disorder), recurrent episode: Code(s): F33.9 - Major depressive disorder, recurrent, unspecified Category: Medical Qualifiers: Major depression episode severity: mild Qualified Code(s): F33.0 - Major depressive disorder, recurrent, mild (5) Obesity (BMI 30.0-34.9): Code(s): E66.9 - Obesity, unspecified Category: Medical Plan . Medications: New bupropion HCl XL (Wellbutrin XL) 150 mg PO QAM 90 tabs 0RF
[2024-05-10 08:35] VITALS: BP 134/72; PULSE 71; RESP 13; TEMP 36.2; O2SAT 98; BMI 34.2
== END 2024-05-10 09:08 | disposition home or self-care (01) ==
PROVIDERS: PCP Nurse Practitioner Family; Visit Provider Nurse Practitioner Family
DX: E23.6 Other disorders of pituitary gland (principal); F33.0 Major depressive disorder, recurrent, mild; E66.9 Obesity, unspecified; Z68.34 Body mass index [BMI] 34.0-34.9, adult; F41.1 Generalized anxiety disorder; M25.512 Pain in left shoulder; G89.29 Other chronic pain

== ENCOUNTER → 2024-05-10 08:29 | Outpatient (BNVA) | payer BC, SELFPAY | PROVIDERS: PCP Nurse Practitioner Family; Visit Provider Nurse Practitioner Family | DX: E23.6 Other disorders of pituitary gland (principal); F41.1 Generalized anxiety disorder; M25.512 Pain in left shoulder; G89.29 Other chronic pain; F33.0 Major depressive disorder, recurrent, mild; E66.9 Obesity, unspecified; Z68.34 Body mass index [BMI] 34.0-34.9, adult | CPT/HCPCS: 96127 ==

== ENCOUNTER → 2024-05-19 08:21 | Outpatient (BNV) | payer BC, SELFPAY | PROVIDERS: PCP Nurse Practitioner Family; Visit Provider Radiology Diagnostic Radiology | DX: E23.6 Other disorders of pituitary gland (principal) | CPT/HCPCS: 70553 ==

== ENCOUNTER 2024-05-19 08:39 | Outpatient (REF) | payer BC, SELFPAY ==
--- NOTE | ~2024-05-19 | MR_ITS ---
EXAMINATION: MR BRAIN WITHOUT AND WITH CONTRAST CLINICAL INFORMATION: Other disorders of the pituitary gland. COMPARISON: None available. TECHNIQUE: Multiplanar, multisequence MRI of the brain was obtained before and after the intravenous administration of 4.5 mL (Gadavist) without reported immediate complications.. FINDINGS: Intrasellar CSF prominence resulting in a concave morphology of the pituitary gland without focal signal abnormality. The pituitary stalk is midline without abnormal enhancement. The cavernous sinuses demonstrated no enhancing mass. The flow-void signal within the main vessels, especially the cavernous sinuses is normal. The optic chiasm is normal. No acute intracranial hemorrhage, mass effect, midline shift, hydrocephalus or herniation. Jackson-white matter differentiation is normal. No restricted diffusion. Bilateral multifocal patchy hyperintense T2 FLAIR signal within the white matter of the right frontal and right parietal temporal without abnormal enhancement. No gross intra-axial or extra-axial enhancing lesion and or mass. The craniocervical junction is intact and normal. The midline structures are normal. MR/MR head/brain wo/w con IMPRESSION: No pituitary microadenoma or macroadenoma. 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 Nonspecific hyperintense T2 FLAIR signal foci, right frontal right temporal parietal. Recommend follow-up for stability. Electronically signed by: Jhony Blakely MD 05/19/2024 10:05 AM EDT
[2024-05-19] MEDS: gadobutroL 7.5 ML VIAL IVPUSH (09:33)
== END 2024-05-19 08:40 | disposition home or self-care (01) ==
LOC: HO.MRI 08:39
PROVIDERS: PCP Nurse Practitioner Family; Visit Provider Nurse Practitioner Family
DX: E23.6 Other disorders of pituitary gland (principal)
CPT/HCPCS: 70553; A9585

== ENCOUNTER 2024-06-07 13:28 | Outpatient (AMB) | payer BC, SELFPAY ==
[2024-06-07 13:30] VITALS: BMI 34.2
--- NOTE | 2024-06-07 13:30 | MHC.OFFVIS ---
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 The patient also reports intermittent neck pain as well as ?numbness? in her left arm. She has been evaluated by our neurosurgery team. No surgery was recommended. She has also been seen in our pain management department. She reports weakness when lifting her left arm above shoulder height. An MRI of her left shoulder was ordered but not approved by her insurance company. The insurance company mandates that the patient go to physical therapy for 6 weeks prior to approving the MRI. The patient is due to start physical therapy tomorrow. Allergies ibuprofen Allergy (Mild, Verified 06/07/24 13:35) Unknown NSAIDS (Non-Steroidal Anti-Inflamma Allergy (Unknown, Verified 06/07/24 13:35) Unknown Sulfa (Sulfonamide Antibiotics) Allergy (Unknown, Verified 06/07/24 13:35) Unknown amoxicillin Adverse Reaction (Severe, Verified 06/07/24 13:35) Hives co-trimoxazole Allergy (Mild, Uncoded 06/07/24 13:35) Unknown sulpha Allergy (Unknown, Uncoded 06/07/24 13:35) Itching Medication List - Last Reconciled 06/07/24 by Tylor Ibarra MD acetaminophen (Tylenol) 650 mg PO Q4H PRN bupropion HCl XL 300 mg PO QAM bupropion HCl XL (Wellbutrin XL) 150 mg PO QAM citalopram 40 mg PO DAILY gabapentin 100 mg PO TID PRN 30 days multivitamin with minerals 10 mL PO DAILY tizanidine 2 mg PO TID PRN PFSH Medical History (Updated 05/10/24 @ 09:47 by MICHAEL Dyer-) Depression Headache Palpitation Sinusitis Surgical History Hx of cholecystectomy (~1986) Gastric bypass status for obesity (~2018) Hx of breast reduction, elective (~1999) Family History Mother Alcohol abuse FH: mental illness Cancer Father FH: mental illness High cholesterol Cancer Sister FH: mental illness Maternal Grandmother Cancer Social History Housing: House Alcohol intake: current Alcohol intake frequency: a few times a week Patient Tobacco Use Status: Never used Tobacco e-Cigarette/Vaping Use: Never Used Second Hand Smoke Exposure: No Substance Use Type: Other service: No Current occupational status: retired Current occupational exposures/hazards: No Cognitive needs: No Hearing needs: No Vision needs: Yes Physical Exam Vital Signs: BMI result Body Mass Index 34.2 Const Other: Well-nourished well-developed very friendly female awake alert and oriented x3 in no acute distress Extrem Other: Left shoulder examination shows decreased range of motion when compared to her right shoulder, 4+ out of 5 strength with supraspinatus testing, positive impingement signs, tenderness over her acromioclavicular joint, no instability Results Reviewed Results Reviewed: X-rays of the patient's left shoulder show severe acromioclavicular joint narrowing, a type 3 acromion, no acute bony abnormalities Assessment & Plan Assessment & Plan (1) Left shoulder pain: Code(s): M25.512 - Pain in left shoulder Category: Medical Qualifiers: Chronicity: chronic Qualified Code(s): M25.512 - Pain in left shoulder; G89.29 - Other chronic pain Plan Ms. Toribio presents with left shoulder pain and weakness possibly due to a rotator cuff tear. I agree with the plan to get a left shoulder MRI once she has completed formal physical therapy if the therapy does not give her significant relief of her pain and weakness. I will see her back once the MRI is completed to discuss the findings and treatment options. Feel free to call me at any time should questions regarding her orthopedic management arise. Thank you very much for asking me to see this very friendly patient. I spent 22 minutes in reviewing the patient's records and imaging studies, seeing the patient and documenting in the medical record. Medications: New methylprednisolone (Medrol (Tom)) PO PER PKG DIR 21 ea 0RF Coding Level of Care Code New Pt Level 3 (96338) Complex EM visit Add On G2211 Diagnoses Chronic left shoulder pain M25.512; G89.29 Chronicity: chronic
== END 2024-06-07 13:56 | disposition home or self-care (01) ==
LOC: HO.HOS 13:29
PROVIDERS: PCP Nurse Practitioner Family; Visit Provider Orthopaedic Surgery
DX: M25.512 Pain in left shoulder (principal)
CPT/HCPCS: 99203

== ENCOUNTER 2024-06-11 13:03 | Outpatient (AMB) | payer BC, SELFPAY ==
--- NOTE | 2024-06-11 13:09 | A.OFFPC_ITS ---
Vital Signs 06/11/24 15:14 Height 5 ft 4 in Weight 198 lb BMI 34.0 Intake Visit Reasons: med review Intake Note: telehealth med review Desilverizer Required: No Allergies ibuprofen Allergy (Mild, Verified 06/11/24 15:10) Unknown NSAIDS (Non-Steroidal Anti-Inflamma Allergy (Unknown, Verified 06/11/24 15:10) Unknown Sulfa (Sulfonamide Antibiotics) Allergy (Unknown, Verified 06/11/24 15:10) Unknown amoxicillin Adverse Reaction (Severe, Verified 06/11/24 15:10) Hives co-trimoxazole Allergy (Mild, Uncoded 06/11/24 15:10) Unknown sulpha Allergy (Unknown, Uncoded 06/11/24 15:10) Itching Medication List - Last Reconciled 06/11/24 by MICHAEL Dyer-MARYCHUY acetaminophen (Tylenol) 650 mg PO Q4H PRN bupropion HCl XL 300 mg PO QAM bupropion HCl XL (Wellbutrin XL) 150 mg PO QAM citalopram 40 mg PO DAILY gabapentin 100 mg PO TID PRN 30 days multivitamin with minerals 10 mL PO DAILY tizanidine 2 mg PO TID PRN Tobacco use date assessed: 06/11/24 Dental Screening Dental Screen Date: 06/11/24 Did you have a dental visit in the last 12 months?: Yes Did you have a dental problem in the last 6 months where you did not have access to dental care?: No Was dental information given to patient?: Patient has dentist HPI HPI Comments History of Present Illness Details Susi 53 y/o F with JERED, MDD, LIZZIE, Leiomyoma o f uterus causing postmenpausal bleeding (US 2017), chronic neck back and shoulder pain, obesity mild to moderate l4l5 and l5s1 disc space narrowing, ,ild l3l4 disc space narrowing suggestive of DDD Xray 10/18/2014, empty sella s/p sleeve gastrectomy, breast reduction, abdominoplasty Telehealth voice only: - The patient is a 53-year-old female pr esenting with concerns regarding weight management and the potential use of medications to assist with weight loss. - She is currently taking Wellbutrin for weight management and expressed interest in adding naltrexone, known as Contrave. She has researched their combined use for weight loss. - She reported persistent weight levels at home despite previous success with Wellbutrin alone and expressed curiosity if naltrexone could address any overeating behavior that may remain. - She also mentioned experiencing allerg y-like symptoms since Friday, specifically eye discomfort when bending over, but no bacterial infection indicated. 1. Obesity: - Proposed an alternative of adding metformin for its potential to induce prolonged satiety by slowing food digestion. Metformin will be introduced to the patient?s current Wellbutrin regimen as an adjunct to facilitate weight loss by promoting satiety. The initial dose will be the lowest effective amount, and adjustments can be made based on effectiveness and any adverse effects. Take with evening meal. Edu on s/e of GI upest. Discouraged naltrexone as she hasnt had great improvement w/ wellbutrin; does not appear she is emotionally eating or binging and she may require surgery for shoulder. The patient is advised to avoid frequent weigh-ins to allow the medication to work effectively, and a follow-up will evaluate progress in about a month. 2. Allergic symptoms: The allergic sympt oms will be managed symptomatically, with current symptoms not indicative of bacterial infection and have shown improvement. Further interventions may be pursued if symptoms persist or worsen, though none are planned at this stage. This visit was conducted via telehealth with both visual and audio components employed to facilitate communication and clinical decision making. The patient has been explained that this is an interactive (audio/video) telehealth encounter and what that consists of. The patient understands and wishes to proceed. [employer] platform was used. Total time spent caring for the patient today was 20 minutes. This includes time spent before the visit reviewing the chart, time spent during the visit, and time spent after the visit on documentation, reviewing laboratory results, diagnostic imaging, medications, performing a medically necessary evaluation, counseling on diagnoses, care coordination, ordering appropriate tests, ordering appropriate medications, review of tests performed by other providers, reporting test results with the patient, communication with other healthcare providers. PENDING SALE TO [facility] Medical History (Updated 05/10/24 @ 09:47 by Ashia Wetzel [facility]) Depression Headache Palpitation Sinusitis Surgical History Hx of cholecystectomy (~1986) Gastric bypass status for obesity (~2018) Hx of breast reduction, elective (~1999) Family History Mother Alcohol abuse FH: mental illness Cancer Father FH: mental illness High cholesterol Cancer Sister FH: mental illness Maternal Grandmother Cancer Social History Housing: House Alcohol intake: current Alcohol intake frequency: a few times a week Patient Tobacco Use Status: Never used Tobacco e-Cigarette/Vaping Use: Never Used Second Hand Smoke Exposure: No Substance Use Type: Other service: No Current occupational status: retired Current occupational exposures/hazards: No Cognitive needs: No Hearing needs: No Vision needs: Yes Questionnaire Thrive Questionnaire Date Thrive assessed: 03/12/24 LIZZIE-7 AMB Questionnaire LIZZIE-7 Date LIZZIE - 7 assessed: 05/10/24 Source: Developed by Drs. Pranav Quinones, Mally Gutierrez, Luís James and colleagues, with an educational elizabeth from [employer]. Physical exam (Primary Care) Tobacco/Smoking Status: Tobacco use Status Tobacco use date assessed 06/11/24 06/11/24 13:10 Patient Tobacco Use Status Never used Tobacco 06/11/24 13:10 e-Cigarette/Vaping Use Never Used 06/11/24 13:10 Thrive Assessment: Date of Thrive Assessment Date Thrive assessed 03/12/24 06/11/24 13:10 Telehealth Telehealth Telehealth Platform: Telephone Location of provider rendering services: other Location of patient: address on file Patient Identification confirmed using: Name, : Yes Telehealth method: voice only Patient verbally consented to treatment: Yes Patient verbally consented to billing insurance company: Yes Patient informed of any privacy concerns related to visit: Yes Minutes spent on Phone/Video with Pt.: 12 Coding Level of Care Code Tele Est Pt Level 3 (31869) Complex EM visit Add On G2211 Diagnoses Obesity (BMI 30.0-34.9) E66.9 S/P gastric sleeve procedure Z90.3 Allergic rhinitis due to other allergic trigger, unspecified seasonality J30.89 Allergic rhinitis trigger: other Allergic rhinitis seasonality: unspecified Assessment & Plan Assessment & Plan (1) Obesity (BMI 30.0-34.9): Code(s): E66.9 - Obesity, unspecified Category: Medical (2) S/P gastric sleeve procedure: Code(s): Z90.3 - Acquired absence of stomach [part of] Category: Medical (3) Allergic rhinitis: Code(s): J30.9 - Allergic rhinitis, unspecified Qualifiers: Allergic rhinitis trigger: other Allergic rhinitis seasonality: unspecified Qualified Code(s): J30.89 - Other allergic rhinitis Plan . Medications: New metformin ER 500 mg PO QPM 90 tabs 0RF
[2024-06-11 15:14] VITALS: BMI 34.0
== END 2024-06-11 16:33 | disposition home or self-care (01) ==
LOC: HO.HMCFM 13:03
PROVIDERS: PCP Nurse Practitioner Family; Visit Provider Nurse Practitioner Family
DX: J30.89 Other allergic rhinitis (principal); E66.9 Obesity, unspecified; Z90.3 Acquired absence of stomach [part of]; Z68.34 Body mass index [BMI] 34.0-34.9, adult

== ENCOUNTER → 2024-06-11 13:03 | Outpatient (BNVA) | payer BC, SELFPAY | PROVIDERS: PCP Nurse Practitioner Family; Visit Provider Nurse Practitioner Family ==

== ENCOUNTER 2024-06-29 11:01 | Outpatient (RCR) | payer BC, SELFPAY ==
--- NOTE | 2024-06-04 13:54 | MHC.PT.EP ---
[facility] [place] [facility] [place] Office [place] Office [address] [place] [address] [phone] F: [phone] F: [phone] F: [phone] F: [phone] Physical Therapy Plan of Care Date of Evaluation: 06/04/24 Date of Surgery: Diagnosis: CERVICAL DISC DEGENERATION, SPONDYLOSIS, Lt SH PAIN Assessment: 53 YO FEMALE REF TO PT W DX CERVICAL SPONDYLOSIS AND Lt SH PAIN S/P FALLING IN 02/2024. OBJECTIVELY: DECR POSTURAL AWARENESS, DECR CERV AROM, (+) TISSUE TENSION IN Rt > Lt CERV PS MM; END ROM SORENESS IN Lt > Rt SH, (+) POSTERIOR/ RC STRENGTH DEFICITS, AND FLUCTUATING PAIN IN HER CERV PS MM / UT REGION/ Lt UE RADIC. 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 WE DISCUSSED POC AND Pt AGREES -> PLAN TO PROCEED ADDRESSING THE ABOVE FINDINGS. Frequency and Duration: The patient will be seen 2 x WKS x 4 WKS Short Term Goals: *DECR CERV PAIN TO 2-3/10 AND DECR Lt UE SXS BY 75% *INITIATE HEP *IMPROVE POSTURAL AWARENESS-> Pt SELF CORRECT IN VARIED POSES [employer] Goals: *Pt INDEP W HEP AND SELF SX MGMT TECHN *Pt RESUME REG ADLs AND EXER ROUTINE *IMPROVED NPDI , AT EVAL14/50 *Pt'S POST RC/ SCAP STRENGTH INCR BY 1 GRADE Treatment Plan: Modalities to reduce pain, spasms and effusion. Manual therapy to restore motion and function. Therapeutic exercise to improve strength and flexibility. Neuromuscular re-education for posture and balance. Therapeutic activities to return to functional activities of daily living. Electronically signed by: MARION PLEITEZ,PT Please sign and return to therapist. Thank you for your referral.
--- NOTE | 2024-09-01 14:29 | MHC.PT.DC ---
[facility] [place] Office [place] Office [place] Office [address] [place] [address] [facility] [phone] F: [phone] F: [phone] F: [phone] F: [phone] Physical Therapy Discharge Report Diagnosis: CERVICAL DISC DEGENERATION, SPONDYLOSIS, Lt SH PAIN Date of Surgery: Date of Evaluation: 06/04/24 Date of Discharge: 09/01/24 Treatments to Date: 7 Cancellations to Date: 2 No Shows to Date: Discharge Status: Improved Function Independent with HEP Patient Elected to Stop Discharge Summary: AT THE LAST ATTENDED PT APPT, THE Pt PRESENTED NOTING HER NECK SXS WERE MUCH BETTER, SHE HAD RESIDUAL PAIN IN Lt ANT GH/ PECT INSERTION AREA AND INTERM THROBBING IN Lt SCAP-> WE APPLIED KT TO ASSESS INFLUENCE ON TISSUES AND POSTURAL FB W ADLS-> HOWEVER, SHE HAS IMPROVED CERV AND Lt SH AROM WELL STRENGTH IN HER Lt SH COMPLEX- SHE DID NOT RETURN FOR HER LAST SCHED APPTS. Electronically signed by: MARION PLEITEZ,PT Please sign and return to therapist. Thank you for your referral.
== END 2024-09-01 14:30 | disposition home or self-care (01) ==
LOC: HO.PT 11:01
PROVIDERS: PCP Nurse Practitioner Family; Visit Provider Nurse Practitioner Family
DX: M47.812 Spondylosis without myelopathy or radiculopathy, cervical region (principal); M25.512 Pain in left shoulder; M50.30 Other cervical disc degeneration, unspecified cervical region; M62.838 Other muscle spasm
CPT/HCPCS: 97110; 97140; 97162; 97530

== ENCOUNTER 2024-07-01 09:27 | Outpatient (AMB) | payer BC, SELFPAY ==
[2024-07-01 09:28] VITALS: BP 98/62; PULSE 73; O2SAT 96; BMI 33.9
--- NOTE | 2024-07-01 09:28 | MHC.OFFVIS ---
Vital Signs 07/01/24 09:28 Height 5 ft 4 in Weight 197 lb 12.074 oz BMI 33.9 BP 98/62 Blood Pressure Location Lt brachial Position Sitting Pulse 73 Pulse Source Pulse Oximeter Pulse Oximetry (%) 96 Oxygen Delivery Method Room Air Intake Visit Reasons: Other disorders of pituitary gland Intake Note: Patient present today for Other disorders of pituitary gland. Guest Experience Captain Required: No Accompanied by: Self / Same As Patient Allergies ibuprofen Allergy (Mild, Verified 07/01/24 09:35) Unknown NSAIDS (Non-Steroidal Anti-Inflamma Allergy (Unknown, Verified 07/01/24 09:35) Unknown Sulfa (Sulfonamide Antibiotics) Allergy (Unknown, Verified 07/01/24 09:35) Unknown amoxicillin Adverse Reaction (Severe, Verified 07/01/24 09:35) Hives co-trimoxazole Allergy (Mild, Uncoded 07/01/24 09:35) Unknown sulpha Allergy (Unknown, Uncoded 07/01/24 09:35) Itching Medication List - Last Reconciled 07/01/24 by Eliana Myers MD acetaminophen (Tylenol) 650 mg PO Q4H PRN bupropion HCl XL 300 mg PO QAM bupropion HCl XL (Wellbutrin XL) 150 mg PO QAM citalopram 40 mg PO DAILY gabapentin 100 mg PO TID PRN 30 days metformin ER 500 mg PO QPM multivitamin with minerals 10 mL PO DAILY tizanidine 2 mg PO TID PRN HPI Comments Details: 53 year old female here today for follow up of partially empty sella. HPI MRI cervical spine done Mar 2024 showed partially empty sella, was done due to left shoulder pain. She has a history of thyroid hormone therapy for weight loss and experienced hyperthyroidism while on the medication. After cessation in November 2023, she experienced a 10-pound weight gain and stability until a recent 5-pound increase in may 04. Endorses dizziness and lightheadedness, once a week, usually when standing , when turns around. not worsening , happned a couple of times, self resolving . Doesnt check BP at home Gained 10 lbs after stopping levothyroxine inS2023, and then weight has remained stable. No nausea or vomiting No abd pain No change in ring size , has noticed a half a size up on shoe size in winter 2023 No nipple discharge 1 pregnacy , no issues with feritlity Postmenopausal since age 48, regular periods before that but started having menorrhagia and had endometrial ablation No excessive thirst or urination Constipation, is chronic. 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 Nonspecific white matter changes without abnormal enhancement. No vision chnages No headaches ,no nausea no vomiting , no weakness in arms or legs Forgot to do blood work Physical exam General: sitting comfortably in no acute distress HEENT: normocephalic/atraumatic, EOM intact, intact visual ramirez grossly Neck: supple, symmetrical, no thyromegaly , Cardiac: normal heart sounds Pulm: normal breath sounds B/L, no added breath sounds Abd: not distended, no tenderness, no abnormal striae Extremities: no edema, no signs of myxedema Laboratory Tests 10/08/23 11/17/23 12:30 07:43 TSH < 0.01 L 1.30 Free T4 0.57 L MR BRAIN WITHOUT AND WITH CONTRAST 05/19/24 CLINICAL INFORMATION: Other disorders of the pituitary gland. COMPARISON: None available. TECHNIQUE: Multiplanar, multisequence MRI of the brain was obtained before and after the intravenous administration of 4.5 mL (Gadavist) without reported immediate complications.. FINDINGS: Intrasellar CSF prominence resulting in a concave morphology of the pituitary gland without focal signal abnormality. The pituitary stalk is midline without abnormal enhancement. The cavernous sinuses demonstrated no enhancing mass. The flow-void signal within the main vessels, especially the cavernous sinuses is normal. The optic chiasm is normal. No acute intracranial hemorrhage, mass effect, midline shift, hydrocephalus or herniation. Jackson-white matter differentiation is normal. No restricted diffusion. Bilateral multifocal patchy hyperintense T2 FLAIR signal within the white matter of the right frontal and right parietal temporal without abnormal enhancement. No gross intra-axial or extra-axial enhancing lesion and or mass. The craniocervical junction is intact and normal. The midline structures are normal. MR/MR head/brain wo/w con IMPRESSION: No pituitary microadenoma or macroadenoma. 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 Nonspecific hyperintense T2 FLAIR signal foci, right frontal right temporal parietal. Recommend follow-up for stability. MR cervical spine without gadolinium 04/02/24 Comparison: None Findings: Partially empty sella. Otherwise unremarkable visualized brain. Normal alignment without acute fracture or marrow infiltration. Normal signal intensity of the visualized cord. Mild posterior disc protrusions from C2/C3 to C4/C5. C2/C3: [id number] left neural foraminal stenosis. C4/C5 and C5/C6: Moderate bilateral neural foraminal stenosis. C6-C7: [id number]-[id number] left neural foraminal stenosis. Otherwise no evidence of significant central canal or neural foraminal stenosis. Multilevel disc dehydration. Moderate disc narrowing at C5/C6 and C6/C7. Visualized soft tissues of the neck are unremarkable. IMPRESSION: No evidence of significant central canal compromise. [id number]-[id number] neural foraminal stenosis noted at several levels. This document has been electronically signed by: Apryl Alejo MD on 04/02/2024 09:34:11 [facility] Medical History (Updated 05/10/24 @ 09:47 by Ashia Wetzel, [facility]) Depression Headache Palpitation Sinusitis Surgical History Hx of cholecystectomy (~1986) Gastric bypass status for obesity (~2018) Hx of breast reduction, elective (~1999) Family History Mother Alcohol abuse FH: mental illness Cancer Father FH: mental illness High cholesterol Cancer Sister FH: mental illness Maternal Grandmother Cancer Social History Housing: House Alcohol intake: current Alcohol intake frequency: a few times a week Patient Tobacco Use Status: Never used Tobacco e-Cigarette/Vaping Use: Never Used Second Hand Smoke Exposure: No Substance Use Type: Other service: No Current occupational status: retired Current occupational exposures/hazards: No Cognitive needs: No Hearing needs: No Vision needs: Yes Assessment & Plan Assessment & Plan (1) Empty sella: Comment: NOTED ON C SP[place] [facility] [place]s): E23.6 - Other disorders of pituitary gland Category: Medical Plan: 53-year-old female here today for follow up of partially empty sella noted on MRI cervical spine done for left shoulder pain in March 2024. 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 Nonspecific white matter changes without abnormal enhancement. The pituitary stalk and optic chiasm is normal. At this point she is pretty much asymptomatic, no headaches, no visual changes.. Patient does not have any signs or symptoms of,from some intermittent dizziness recently, to suggest pituitary insufficiency however we would still like to see a detail pituitary panel to further evaluate this. Placed orders last time, however patient forgot to do blood work. If her pituitary panel is normal, she would not need further follow up for this unless something changes clinically. I discussed with her the findings of the MRI and explained to her the anatomical change in her pituitary due to possible pressing of the pituitary gland by CSF again if functionally no hormone deficits are present and patient is asymptomatic, no need for intervention. We will order again pituitary panel. Plan: -ordered pituitary panel -follow up in 4 weeks to discuss results Plan See above Orders: Orders IGF-1 (Somatomedin C) Today E23.6 - Other disorders of pituitary gland Human Growth Hormone Today E23.6 - Other disorders of pituitary gland Thyroid Stimulating Hormone Today E23.6 - Other disorders of pituitary gland Free T4 (Free Thyroxine) Today E23.6 - Other disorders of pituitary gland Adrenocorticotropic Hormone Today E23.6 - Other disorders of pituitary gland Cortisol Random Today E23.6 - Other disorders of pituitary gland Lutenizing Hormone Today E23.6 - Other disorders of pituitary gland Follicle Stimulating Hormone Today E23.6 - Other disorders of pituitary gland Prolactin Today E23.6 - Other disorders of pituitary gland Alpha Subunit Today E23.6 - Other disorders of pituitary gland Patient Instructions: Do 8 AM blood work Coding Level of Care Code Est Pt Level 3 (28870) Diagnoses Empty sella E23.6
== END 2024-07-01 09:49 | disposition home or self-care (01) ==
LOC: HO.ENCR 09:27
PROVIDERS: PCP Nurse Practitioner Family; Visit Provider Student in an Organized Health Care Education/Training Program
DX: E23.6 Other disorders of pituitary gland (principal)
CPT/HCPCS: 99213

== ENCOUNTER 2024-07-05 07:59 | Outpatient (REF) | payer BC, SELFPAY ==
[2024-07-05 09:15] LABS: Cortisol Random 6.5 ug/dL
[2024-07-05 09:18] LABS: Free T4 (Free Thyroxine) 0.86 ng/dL (0.71-1.85); Thyroid Stimulating Hormone 1.69 uIU/mL (0.32-4.0)
[2024-07-06 05:48] LABS: Follicle Stimulating Hormone 56.7 mIU/mL; Lutenizing Hormone 20.9 mIU/mL; Prolactin 4.9 ng/mL
[2024-07-07 06:58] LABS: Human Growth Hormone 0.4 ng/mL (< OR = 7.1)
[2024-07-08 16:08] LABS: Adrenocorticotropic Hormone 8 pg/mL (6-50)
[2024-07-14 01:05] LABS: IGF-1 (Somatomedin C) 72 ng/mL (50-317); IGF-1 Z Score (Female) -1.3 SD (-2.0 - +2.0)
[2024-07-19 01:54] LABS: Estradiol Ultra Sensitive <2 pg/mL
== END 2024-07-05 08:00 | disposition home or self-care (01) ==
LOC: HO.LAB 07:59
PROVIDERS: PCP Nurse Practitioner Family; Visit Provider Student in an Organized Health Care Education/Training Program
DX: E23.6 Other disorders of pituitary gland (principal)
CPT/HCPCS: 36415; 82024; 82533; 82670; 83001; 83002; 83003; 83519; 84146; 84305; 84439; 84443

== ENCOUNTER 2024-07-13 08:26 | Outpatient (AMB) | payer BC, SELFPAY ==
--- NOTE | 2024-07-13 08:29 | A.OFFPC_ITS ---
Vital Signs 07/13/24 08:32 Height 5 ft 4 in Weight 199 lb 2 oz BMI 34.2 BP 118/70 Blood Pressure Location Rt brachial Position Sitting Respiration 12 Pulse 66 Pulse Source Pulse Oximeter Temp 97.4 F Temp Source Oral Pulse Oximetry (%) 97 Oxygen Delivery Method Room Air Intake Visit Reasons: 8 weeks 30 min wt loss/wellbutrin Intake Note: Follow up wt loss [employer] Required: No Allergies ibuprofen Allergy (Mild, Verified 07/13/24 08:41) Unknown NSAIDS (Non-Steroidal Anti-Inflamma Allergy (Unknown, Verified 07/13/24 08:41) Unknown Sulfa (Sulfonamide Antibiotics) Allergy (Unknown, Verified 07/13/24 08:41) Unknown amoxicillin Adverse Reaction (Severe, Verified 07/13/24 08:41) Hives co-trimoxazole Allergy (Mild, Uncoded 07/01/24 09:35) Unknown sulpha Allergy (Unknown, Uncoded 07/01/24 09:35) Itching Medication List - Last Reconciled 07/13/24 by MICHAEL Dyer- acetaminophen (Tylenol) 650 mg PO Q4H PRN bupropion HCl XL 300 mg PO QAM bupropion HCl XL (Wellbutrin XL) 150 mg PO QAM citalopram 40 mg PO DAILY gabapentin 100 mg PO TID PRN 30 days metformin ER 500 mg PO QPM multivitamin with minerals 10 mL PO DAILY tizanidine 2 mg PO TID PRN Tobacco use date assessed: 06/11/24 Dental Screening Dental Screen Date: 06/11/24 HPI HPI Comments History of Present Illness Details Susi 53 y/o F with JERED, MDD, LIZZIE, 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 - The patient reports that her weight re mar unchanged at 199 pounds despite initiating metformin 500 mg daily four weeks ago. - She reports increased hunger in the af ternoon, though no side effects from metformin. - Wellbutrin (Bupropion) is used consist ently at 450 mg daily without missed doses. - There is a concern regarding possible pituitary dysfunction and cortisol irregularities as mentioned by another physician, Dr. Myers. - Cortisol testing has not been schedule d due to issues confirming her insurance status. - The patient suspects a slow metabolism and is awaiting the results of several pending labs. - Has interest in [facility] Medical Mgmt re ferral Physical Exam General: Well developed, well nourished, in no acute distress. Appears stated age. Head: Normocephalic, atraumatic. Lungs: Clear to auscultation bilaterally. No rales, rhonchi or wheeze noted. Good air flow in all ramirez. Heart: Regular rate and rhythm. No murmurs, click, rubs or gallops are noted. Psych: Mood and affect appropriate. Discussion Notes A detailed discussion was held with the patient regarding her current regimen of Wellbutrin and metformin, addressing her concerns about the lack of weight loss. The benefits of potentially increasing the metformin dose versus awaiting endocrine evaluation results were discussed. Concerns regarding hunger were noted, and scheduling cortisol testing was encouraged following resolution of insurance issues. Additionally, the option of participating in a medical weight management program was offered, with recommendations to wait for further test outcomes. Instructions were given to maintain the current dosage of metformin and consider a timed snack to manage afternoon hunger. We planned a follow-up for a physical examination in October, pending results from endocrinology evaluations. Assessment and Plan 1. Obesity The patient's weight has stabilized despite metformin therapy. Continued observations and meal timing modifications are recommended, pending endocri nology assessments. Eat a snack midday, take metformin earlier. Cont wellbutrin. Refer to [facility] mgmt prn 2. Depression/LIZZIE Current treatment with Bupropion is ongoing with no adverse reactions; we continue monitoring for efficacy and any changes in emotional or physical status. Patient Instructions - Keep taking metformin as prescribed. - Contact your insurance provider to res olve coverage issues concerning cortisol testing. - Consider eating a snack before you fee l hungry in the afternoon & take metformin earlier . - Monitor your overall mood and appetite changes. - Reach out if you decide to adjust the timing or dosage of your medication. (ok to increase metformin to bid) - Follow up for the physical exam in Oct or sooner if you receive your lab results before then. Consent Patient was informed and verbally consented to the use of an ambient scribe for clinic note documentation during this visit. Total time spent caring for the patient today was 31 minutes. This includes time spent before the visit reviewing the chart, time spent during the visit, and time spent after the visit on documentation, reviewing laboratory results, diagnostic imaging, medications, performing a medically necessary evaluation, counseling on diagnoses, care coordination, ordering appropriate tests, ordering appropriate medications, review of tests performed by other providers, reporting test results with the patient, communication with other healthcare providers. [facility] Medical History (Updated 05/10/24 @ 09:47 by Ashia Wetzel, [facility]) Depression Headache Palpitation Sinusitis Surgical History Hx of cholecystectomy (~1986) Gastric bypass status for obesity (~2018) Hx of breast reduction, elective (~1999) Family History Mother Alcohol abuse FH: mental illness Cancer Father FH: mental illness High cholesterol Cancer Sister FH: mental illness Maternal Grandmother Cancer Social History Housing: House Alcohol intake: current Alcohol intake frequency: a few times a week Patient Tobacco Use Status: Never used Tobacco e-Cigarette/Vaping Use: Never Used Second Hand Smoke Exposure: No Substance Use Type: Other service: No Current occupational status: retired Current occupational exposures/hazards: No Cognitive needs: No Hearing needs: No Vision needs: Yes Questionnaire PHQ-9 Over the last 2 weeks, how often have you been bothered by any of the following problems? 1. Little interest or pleasure in doing things: not at all 2. Feeling down, depressed, or hopeless: not at all 3. Trouble falling or staying asleep, or sleeping too much: not at all 4. Feeling tired or having little energy: not at all 5. Poor appetite or overeating: not at all 6. Feeling bad about yourself - or that you are a failure or have let yourself or your family down: not at all 7. Trouble concentrating on things, such as reading the newspaper or watching television: not at all 8. Moving or speaking so slowly that other people could have noticed. Or the opposite - being so fidgety or restless that you have been moving around a lot more than usual: not at all 9. Thoughts that you would be better off or of hurting yourself in some way: not at all Total score: 0 Depression Screening Interpretation: Negative Depression Screening Done: Yes 23455 - PHQ-9 Billing: Yes Source: Developed by Drs. Pranav Quinones, Mally Gutierrez, Luís James and colleagues, with an educational elizabeth from [employer]. Thrive Questionnaire Date Thrive assessed: 07/13/24 I am a: Patient What is your living situation today?: I have a steady place to live Within the past 12 months, did the food you bought not last and you didn't have the money to get more?: Never true Within the past 12 months, did you worry whether your food would run out before you got money to buy more?: Never true Do you have trouble paying for medicines?: No Do you have trouble getting transportation to medical appointments?: No Do you have trouble paying your heating and electricity bill?: No Do you have trouble taking care of your child, family member or friend?: No Do you have trouble with day-to-day activities such as bathing, preparing meals, shopping, managing finances, etc.?: No Are you currently unemployed and looking for a job?: No Are you interested in more education?: No Please select the resources that you would like help with: None Currently or been in a relationship where the following occur: No concerns reported THRIVE Score: 0 LIZZIE-7 AMB Questionnaire LIZZIE-7 Date LIZZIE - 7 assessed: 07/13/24 Feeling nervous, anxious, or on edge: 0 = Not at all Not being able to stop or control worryin = Not at all Worrying too much about different things: 0 = Not at all Trouble relaxin = Not at all Being so restless that it is hard to sit still: 0 = Not at all Becoming easily annoyed or irritable: 0 = Not at all Feeling afraid as if something awful might happen: 0 = Not at all Total LIZZIE-7 score (0-4 normal; 5-9 mild; 10-14 moderate; 15-21 severe): 0 Source: Developed by Drs. Pranav Quinones, Mally Gutierrez, Luís James and colleagues, with an educational elizabeth from [employer]. LIZZIE-7 Assessment Billing LIZZIE-7 Assessment Tool: LIZZIE-7 Assessment 23953 Physical exam (Primary Care) Vital Signs: Last Vital Signs Temp 97.4 F 07/13/24 08:32 Pulse 66 07/13/24 08:32 Resp 12 07/13/24 08:32 BP 118/70 07/13/24 08:32 Pulse Ox 97 07/13/24 08:32 Oxygen Delivery Method Room Air 07/13/24 08:32 BMI result Body Mass Index 34.2 Tobacco/Smoking Status: Tobacco use Status Tobacco use date assessed 06/11/24 07/13/24 08:30 Patient Tobacco Use Status Never used Tobacco 07/13/24 08:30 e-Cigarette/Vaping Use Never Used 07/13/24 08:30 PHQ-9: PHQ-9 Score PHQ-9: Total score 0 07/13/24 08:34 Depression Screening Interpretation: Negative Thrive Assessment: Date of Thrive Assessment Date Thrive assessed 07/13/24 07/13/24 08:34 Currently or been in a relationship where the following occur: No concerns reported Coding Level of Care Code Est Pt Level 4 (45561) Complex EM visit Add On G2211 Diagnoses Empty sella E23.6 Mild episode of recurrent major depressive disorder F33.0 Major depression episode severity: mild Obesity (BMI 30.0-34.9) E66.9 S/P gastric sleeve procedure Z90.3 LIZZIE (generalized anxiety disorder) F41.1 Additional Codes LIZZIE-7 Assessment Billing - LIZZIE-7 Assessment Tool: LIZZIE-7 Assessment 09442 ([id number]) PHQ-9 - 78663 - PHQ-9 Billing: Yes ([id number]) Assessment & Plan Assessment & Plan (1) Empty sella: Comment: NOTED ON C SPINE MRI DONE AT [facility] Code(s): E23.6 - Other disorders of pituitary gland Category: Medical (2) MDD (major depressive disorder), recurrent episode: Code(s): F33.9 - Major depressive disorder, recurrent, unspecified Category: Medical Qualifiers: Major depression episode severity: mild Qualified Code(s): F33.0 - Major depressive disorder, recurrent, mild (3) Obesity (BMI 30.0-34.9): Code(s): E66.9 - Obesity, unspecified Category: Medical (4) S/P gastric sleeve procedure: Code(s): Z90.3 - Acquired absence of stomach [part of] Category: Medical (5) LIZZIE (generalized anxiety disorder): Code(s): F41.1 - Generalized anxiety disorder Category: Medical Plan .
[2024-07-13 08:32] VITALS: BP 118/70; PULSE 66; RESP 12; TEMP 36.3; O2SAT 97; BMI 34.2
== END 2024-07-13 08:56 | disposition home or self-care (01) ==
LOC: HO.HMCFM 08:27
PROVIDERS: PCP Nurse Practitioner Family; Visit Provider Nurse Practitioner Family
DX: E23.6 Other disorders of pituitary gland (principal); E66.9 Obesity, unspecified; Z68.34 Body mass index [BMI] 34.0-34.9, adult; F33.0 Major depressive disorder, recurrent, mild; Z90.3 Acquired absence of stomach [part of]; F41.1 Generalized anxiety disorder

== ENCOUNTER → 2024-07-13 08:26 | Outpatient (BNVA) | payer BC, SELFPAY | PROVIDERS: PCP Nurse Practitioner Family; Visit Provider Nurse Practitioner Family | DX: E23.6 Other disorders of pituitary gland (principal); F33.0 Major depressive disorder, recurrent, mild; E66.9 Obesity, unspecified; Z68.34 Body mass index [BMI] 34.0-34.9, adult; F41.1 Generalized anxiety disorder; Z90.3 Acquired absence of stomach [part of] | CPT/HCPCS: 96127 ==

== ENCOUNTER 2024-08-04 07:39 | Outpatient (RCR) | payer BC, SELFPAY ==
[2024-08-04 07:43] VITALS: BP 101/60; PULSE 68; RESP 16; TEMP 37.2; O2SAT 97
[2024-08-04] MEDS: Cosyntropin 0.25 MG VIAL IVPUSH (07:52)
[2024-08-05 08:48] LABS: Cortisol 30 Minute 16.6 mcg/dL; Cortisol 60 Minute 37.8 mcg/dL; Cortisol Baseline 32.9 mcg/dL
== END 2024-08-04 09:06 | disposition home or self-care (01) ==
LOC: HO.INF 07:39
PROVIDERS: Visit Provider Student in an Organized Health Care Education/Training Program
DX: E23.6 Other disorders of pituitary gland (principal); R79.89 Other specified abnormal findings of blood chemistry
CPT/HCPCS: 36415; 82533; 96374; J0834

== ENCOUNTER 2024-08-19 09:54 | Outpatient (AMB) | payer BC, SELFPAY ==
[2024-08-19 09:55] VITALS: BP 120/72; PULSE 64; O2SAT 96; BMI 33.8
--- NOTE | 2024-08-19 09:55 | A.OFFVIS_ITS ---
Vital Signs 08/19/24 09:55 Height 5 ft 4 in Weight 197 lb 1.492 oz BMI 33.8 BP 120/72 Blood Pressure Location Lt brachial Position Sitting Pulse 64 Pulse Source Pulse Oximeter Pulse Oximetry (%) 96 Oxygen Delivery Method Room Air Intake Visit Reasons: Empty sella Intake Note: Patient present today for Empty sella office visit. Director Work Required: No Accompanied by: Self / Same As Patient Allergies ibuprofen Allergy (Mild, Verified 08/19/24 09:58) Unknown NSAIDS (Non-Steroidal Anti-Inflamma Allergy (Unknown, Verified 08/19/24 09:58) Unknown Sulfa (Sulfonamide Antibiotics) Allergy (Unknown, Verified 08/19/24 09:58) Unknown amoxicillin Adverse Reaction (Severe, Verified 08/19/24 09:58) Hives co-trimoxazole Allergy (Mild, Uncoded 08/19/24 09:58) Unknown sulpha Allergy (Unknown, Uncoded 08/19/24 09:58) Itching Medication List - Last Reconciled 08/19/24 by Eliana Myers MD acetaminophen (Tylenol) 650 mg PO Q4H PRN bupropion HCl XL (Wellbutrin XL) 150 mg PO QAM bupropion HCl XL 300 mg PO QAM citalopram 40 mg PO DAILY gabapentin 100 mg PO TID PRN 30 days metformin ER 500 mg PO QPM multivitamin with minerals 10 mL PO DAILY tizanidine 2 mg PO TID PRN HPI Comments Details: 53 year old female here today for follow up of partially empty sella. HPI MRI cervical spine done Mar 2024 showed partially empty sella, was done due to left shoulder pain. She has a history of thyroid hormone therapy for weight loss and experienced hyperthyroidism while on the medication. After cessation in November 2023, she experienced a 10-pound weight gain and stability until a recent 5-pound increase in may 04. Endorses dizziness and lightheadedness, once a week, usually when standing , when turns around. not worsening , happned a couple of times, self resolving . Doesnt check BP at home Gained 10 lbs after stopping levothyroxine inS2023, and then weight has remained stable. No nausea or vomiting No abd pain No change in ring size , has noticed a half a size up on shoe size in winter 2023 No nipple discharge 1 pregnacy , no issues with feritlity Postmenopausal since age 48, regular periods before that but started having menorrhagia and had endometrial ablation No excessive thirst or urination Constipation, is chronic. 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 Nonspecific white matter changes without abnormal enhancement. No vision chnages No headaches ,no nausea no vomiting , no weakness in arms or legs Labs from 07/05/2024 showed normal pituitary panel except cortisol was on the lower side at 6.5 done in a.m., proceeded with cosyntropin stimulation testing, done 08/04/2024 which showed robust results. Physical exam General: sitting comfortably in no acute distress HEENT: normocephalic/atraumatic Neck: supple, symmetrical Cardiac: normal heart sounds Pulm: normal breath sounds B/L, no added breath sounds Abd: not distended, no tenderness, no abnormal striae Extremities: no edema, no signs of myxedema Laboratory Tests 10/08/23 11/17/23 12:30 07:43 TSH < 0.01 L 1.30 Free T4 0.57 L Laboratory Tests 07/05/24 08/04/24 08:13 07:52 Alpha Subunit Marker 0.6 TSH 1.69 Free T4 0.86 Estradiol Ultra LCMSMS <2 FSH 56.7 Luteinizing Hormone 20.9 Prolactin 4.9 Human Growth Hormone 0.4 Somatomedin-C 72 Somato-C Z-Score Female -1.3 Random Cortisol 6.5 Cortisol Baseline 32.9 Cortisol 30 Minute 16.6 L Cortisol 60 Minute 37.8 ACTH 8 MR BRAIN WITHOUT AND WITH CONTRAST 05/19/24 CLINICAL INFORMATION: Other disorders of the pituitary gland. COMPARISON: None available. TECHNIQUE: Multiplanar, multisequence MRI of the brain was obtained before and after the intravenous administration of 4.5 mL (Gadavist) without reported immediate complications.. FINDINGS: Intrasellar CSF prominence resulting in a concave morphology of the pituitary gland without focal signal abnormality. The pituitary stalk is midline without abnormal enhancement. The cavernous sinuses demonstrated no enhancing mass. The flow-void signal within the main vessels, especially the cavernous sinuses is normal. The optic chiasm is normal. No acute intracranial hemorrhage, mass effect, midline shift, hydrocephalus or herniation. Jackson-white matter differentiation is normal. No restricted diffusion. Bilateral multifocal patchy hyperintense T2 FLAIR signal within the white matter of the right frontal and right parietal temporal without abnormal enhancement. No gross intra-axial or extra-axial enhancing lesion and or mass. The craniocervical junction is intact and normal. The midline structures are normal. MR/MR head/brain wo/w con IMPRESSION: No pituitary microadenoma or macroadenoma. 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 Nonspecific hyperintense T2 FLAIR signal foci, right frontal right temporal parietal. Recommend follow-up for stability. MR cervical spine without gadolinium 04/02/24 Comparison: None Findings: Partially empty sella. Otherwise unremarkable visualized brain. Normal alignment without acute fracture or marrow infiltration. Normal signal intensity of the visualized cord. Mild posterior disc protrusions from C2/C3 to C4/C5. C2/C3: [id number]-[id number] left neural foraminal stenosis. C4/C5 and C5/C6: Moderate bilateral neural foraminal stenosis. C6-C7: [id number]-pc-[id number] left neural foraminal stenosis. Otherwise no evidence of significant central canal or neural foraminal stenosis. Multilevel disc dehydration. Moderate disc narrowing at C5/C6 and C6/C7. Visualized soft tissues of the neck are unremarkable. IMPRESSION: No evidence of significant central canal compromise. Fdka-xo-oswvteij neural foraminal stenosis noted at several levels. This document has been electronically signed by: Apryl Alejo MD on 04/02/2024 09:34:11 [facility] Medical History (Updated 05/10/24 @ 09:47 by Ashia Wetzel, [facility]) Depression Headache Palpitation Sinusitis Surgical History Hx of cholecystectomy (~1986) Gastric bypass status for obesity (~2018) Hx of breast reduction, elective (~1999) Family History Mother Alcohol abuse FH: mental illness Cancer Father FH: mental illness High cholesterol Cancer Sister FH: mental illness Maternal Grandmother Cancer Social History Housing: House Alcohol intake: current Alcohol intake frequency: a few times a week Patient Tobacco Use Status: Never used Tobacco e-Cigarette/Vaping Use: Never Used Second Hand Smoke Exposure: No Substance Use Type: Other service: No Current occupational status: retired Current occupational exposures/hazards: No Cognitive needs: No Hearing needs: No Vision needs: Yes Physical Exam Vital Signs: Last Vital Signs Pulse 64 08/19/24 09:55 BP 120/72 08/19/24 09:55 Pulse Ox 96 08/19/24 09:55 Oxygen Delivery Method Room Air 08/19/24 09:55 BMI result Body Mass Index 33.8 Assessment & Plan Assessment & Plan (1) Empty sella: Comment: NOTED ON C SPINE MRI DONE AT [facility] Code(s): E23.6 - Other disorders of pituitary gland Category: Medical Plan: 53-year-old female here today for follow up of partially empty sella noted on MRI cervical spine done for left shoulder pain in March 2024. 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 Nonspecific white matter changes without abnormal enhancement. The pituitary stalk and optic chiasm is normal. At this point she is pretty much asymptomatic, no headaches, no visual changes.. Patient does not have any signs or symptoms of,from some intermittent dizziness recently, to suggest pituitary insufficiency Labs from 07/05/2024 showed normal pituitary panel except cortisol was on the lower side at 6.5 done in a.m., proceeded with cosyntropin stimulation testing, done 08/04/2024 which showed robust results. pituitary panel is normal, she would not need further follow up for this unless something changes clinically. I discussed with her the findings of the MRI and explained to her the anatomical change in her pituitary due to possible pressing of the pituitary gland by CSF again and since functionally no hormone deficits are present and patient is asymptomatic, no need for intervention. At this time she has a lot of concerns about difficulty losing weight, and slowed metabolism, hot flashes, I explained to her that metabolism does slow down especially now that she is in her postmenopausal years. Explained to her importance of regular exercise including resistance training, focusing on getting enough protein intake around 40-60 g per day, and if the hot flashes are very bothersome, she should doctor OBGYN/menopause specialist for considering hormone replacement therapy. Especially that right now she is in her 50s and within 10 years of being menopausal, it would be a good time to see if she would be a good candidate for hormone replacement therapy. Patient verbalized understanding. Plan See above Coding Level of Care Code Est Pt Level 3 (56645) Diagnoses Empty sella E23.6
== END 2024-08-19 10:15 | disposition home or self-care (01) ==
LOC: HO.ENCR 09:55
PROVIDERS: PCP Nurse Practitioner Family; Visit Provider Student in an Organized Health Care Education/Training Program
DX: E23.6 Other disorders of pituitary gland (principal)
CPT/HCPCS: 99213

== ENCOUNTER → 2024-08-19 09:54 | Outpatient (BNVA) | payer BC, SELFPAY | PROVIDERS: PCP Nurse Practitioner Family; Visit Provider Student in an Organized Health Care Education/Training Program ==

== ENCOUNTER 2024-10-20 11:59 | Outpatient (AMB) | payer BC, SELFPAY ==
--- NOTE | 2024-10-20 12:03 | A.OFFPC_ITS ---
Vital Signs 10/20/24 12:06 Height 5 ft 4 in Weight 187 lb 4 oz BMI 32.1 BP 115/67 Blood Pressure Location Lt brachial Position Sitting Respiration 12 Pulse 61 Pulse Source Pulse Oximeter Temp 97.5 F Temp Source Oral Pulse Oximetry (%) 99 Oxygen Delivery Method Room Air Intake Visit Reasons: Oct CPE Intake Note: CPE Door Framer Required: No Allergies ibuprofen Allergy (Mild, Verified 10/20/24 12:18) Unknown NSAIDS (Non-Steroidal Anti-Inflamma Allergy (Unknown, Verified 10/20/24 12:18) Unknown Sulfa (Sulfonamide Antibiotics) Allergy (Unknown, Verified 10/20/24 12:18) Unknown amoxicillin Adverse Reaction (Severe, Verified 10/20/24 12:18) Hives co-trimoxazole Allergy (Mild, Uncoded 10/20/24 12:18) Unknown sulpha Allergy (Unknown, Uncoded 10/20/24 12:18) Itching Medication List - Last Reconciled 10/20/24 by Ashia Wetzel, CERTIFIED NURSES AIDE- acetaminophen (Tylenol) 650 mg PO Q4H PRN bupropion HCl XL (Wellbutrin XL) 150 mg PO QAM bupropion HCl XL 300 mg PO QAM citalopram 40 mg PO DAILY gabapentin 100 mg PO TID PRN 30 days metformin ER 500 mg PO QPM multivitamin with minerals 10 mL PO DAILY tizanidine 2 mg PO TID PRN Tobacco use date assessed: 10/20/24 Dental Screening Dental Screen Date: 10/20/24 Did you have a dental visit in the last 12 months?: Yes Did you have a dental problem in the last 6 months where you did not have access to dental care?: No Was dental information given to patient?: Patient has dentist HPI HPI Comments History of Present Illness Details Susi 54 y/o F with JERED, MDD, LIZZIE, Leiomyoma o f uterus causing postmenpausal bleeding (US 2017), chronic neck back and shoulder pain, obesity mild to moderate l4l5 and l5s1 disc space narrowing, ,ild l3l4 disc space narrowing suggestive of DDD Xray 10/18/2014, empty sella s/p sleeve gastrectomy, breast reduction, abdominoplasty Fhx: No changes in the last year Social , 1 dtr Health Maintenance: Colon cologaurd ... pending results DEXA 03/17/24 WNL PAP 04/19/08 repeat 3 years 2012 wn, 2016 wnl endometrial bx mild proliferative endometreium, pap 2019 wnl, pap 2021 wnl Mammo 03/2024 Tdap 2024 Flu 01/07/24 Zoster series complete Specialists: Optho - wears glasses; new RX counselor Chiro Endo - cleared ObGyn - referred today to [facility] History of Present Illness - The patient is a 54-year-old female pr esenting with a request for a complete physical examination. - Bupropion is used for major depressive disorder and also aids weight control. BMI is 32.1. - Metformin prescribed for weight loss. - Citalopram for anxiety and depression. - Gabapentin for neck pain and upper ext remity paresthesia. - Multivitamin with mineral use reported . - Environmental allergies; nasal congest ion and headaches, using flonase, carissa and saline rinse; sx worse in the AM. Reviewed allergy testing; agreeable. - Started w/ intermittent muscle twitch in the right shoulder, suspected due Bupropion. Tolerable and willing to cont. @ this time - Constipation likely linked to Bupropio n. Currently consuming fiber supplements and fluids. Recomment to start Benefiber QD - Engaged in weight management plan. Los t 10 lbs since last visit. Using sandra. - Would like to see hormone specialist - Recommend Jessica Doss for this and routine pit boss care - Wonders about skin ca screening, has n o concerns. Refer to [place] derm today Review of Systems - Constitutional: Reports general wellne ss; no recent weight loss or fever. - Eyes: Denies significant vision change s except minor prescription changes. - ENT: Denies nasal congestion; reports sinus issues and small nasal passages. - Cardiovascular: Denies chest pain or p alpitations. - Respiratory: Denies dyspnea. - Gastrointestinal: Reports constipation ; denies other GI issues. - Musculoskeletal: Reports neck and shou lder pain; denies other joint issues. - Neurological: Reports muscle twitches in right shoulder. - Psychiatric: Reports depression and an xiety, managed with medication. Physical Exam General: Well developed, well nourished, in no acute distress. Appears stated age. Head: Normocephalic, atraumatic. Eyes: Pupils are equal, round and reactive to light and accommodation. Conjunctivae are clear. Vision grossly normal. Ears: TMs congestion bilat, R>L, EACS WNL Nose: Patent, without discharge. Edema and erythema R turbinate Neck: Supple, no adenopathy or thyromegaly. Breast: Edu on SBE Lungs: Clear to auscultation bilaterally. No rales, rhonchi or wheeze noted. Good air flow in all ramirez. Heart: Regular rate and rhythm. No murmurs, click, rubs or gallops are noted. Abdomen: Bowel sounds present in all quadrants. The abdomen is soft, nontender, with no masses or organomegaly noted. No hernias are noted. : Deferred. Reviewed recommendations for routine COMPUTER PUBLISHER. Pulses: Peripheral pulses are equal and palpable bilaterally. Extremities: No clubbing, cyanosis nor edema is noted. Neurologic: Gait and station normal. Cranial Nerves 2-12 intact. Motor strength grossly symmetrical and intact. No sensory loss. Balance normal. Skin: No rashes, ulcers, or lesions noted. Turgor is good. Skin color is good. Hair and nails are without abnormalities. Psych: Normal eye contact, affect and mood appropriate, and normal interactions. Patient is alert and appropriate to context. Results Pending Discussion Notes During the visit, I discussed with the patient the management of her current health conditions including major depressive disorder, obesity, and generalized anxiety disorder. We addressed side effects from Bupropion, notably muscle twitches, and constipation, providing recommendations for fiber supplements and increased fluid intake. The patient was advised on the routine follow-up for her Pap smear and allergy testing due to nasal issues. I mentioned the possibility of seeing an information strategist for comprehensive testing and discussed the potential commitment required for allergy shots, should that course of action be deemed beneficial. Future steps regarding weight management and her medications were considered with a follow-up planned to re-evaluate these chronic conditions and interventions. The importance of EHR communication from external specialists was discussed concerning her follow-up with endocrinology and SOIL SPECIALIST for comprehensive care management. Patient was given time to ask questions. All questions were answered to their satisfaction. Assessment and Plan 1. Major Depressive Disorder - Continue Bupropion and Citalopram. - Monitor side effects and effectiveness . 2. Generalized Anxiety Disorder - Maintain Citalopram. - Assess symptom control. 3. Obesity - Use Metformin for medical support. - Follow-up on dietary and exercise effo rts. 4. Constipation - Increase fluids and fiber. - Monitor symptom improvement. 5. Neck Pain and Upper Extremity Paresth esia - Continue Gabapentin; emphasize ergonom ics. 6. Elevated Cholesterol - Plan lipid profile follow-up. - Recommend dietary intervention. 7. Possible Allergic Rhinitis - Bridge Contractor referral. - Adjust antihistamine timing (take gerson rgra in the PM) RTO 6 MO ROUTINE FU, SOONER PRN Patient Instructions - Take Gabapentin and other medications as prescribed. - Increase water intake and continue fib er supplements. - Follow up on all referrals and schedul e any remaining appointments. - Report any worsening symptoms especial ly twitching or constipation. - Aim for regular, balanced meals with r educed cholesterol. - Consider timing adjustments for allerg y medicines with a bedtime antihistamine. - Stay active with physical activity to manage weight. Consent Patient was informed and verbally consented to the use of an ambient scribe for clinic note documentation during this visit. An additional 20 minutes was spent addressing the problem(s) noted at todays visit. This includes time spent before the visit reviewing the chart, time spent during the visit, and time spent after the visit on documentation reviewing laboratory results, diagnostic imaging, medications, performing a medically necessary evaluation, counseling on diagnoses, care coordination, ordering appropriate tests, ordering appropriate medications, review of tests performed by other providers, reporting test results with the patient, communication with other healthcare providers. [facility] Medical History (Updated 10/20/24 @ 14:39 by Ashia Wetzel, [facility]) Depression Headache Palpitation Sinusitis Surgical History Hx of cholecystectomy (~1986) Gastric bypass status for obesity (~2018) Hx of breast reduction, elective (~1999) Family History Mother Alcohol abuse FH: mental illness Cancer Father FH: mental illness High cholesterol Cancer Sister FH: mental illness Maternal Grandmother Cancer Social History Housing: House Alcohol intake: current Alcohol intake frequency: a few times a week Patient Tobacco Use Status: Never used Tobacco e-Cigarette/Vaping Use: Never Used Second Hand Smoke Exposure: No Substance Use Type: Other service: No Current occupational status: retired Current occupational exposures/hazards: No Cognitive needs: No Hearing needs: No Vision needs: Yes Questionnaire PHQ-9 Over the last 2 weeks, how often have you been bothered by any of the following problems? 1. Little interest or pleasure in doing things: not at all 2. Feeling down, depressed, or hopeless: not at all 3. Trouble falling or staying asleep, or sleeping too much: not at all 4. Feeling tired or having little energy: not at all 5. Poor appetite or overeating: not at all 6. Feeling bad about yourself - or that you are a failure or have let yourself or your family down: not at all 7. Trouble concentrating on things, such as reading the newspaper or watching television: not at all 8. Moving or speaking so slowly that other people could have noticed. Or the opposite - being so fidgety or restless that you have been moving around a lot more than usual: not at all 9. Thoughts that you would be better off or of hurting yourself in some way: not at all Total score: 0 Depression Screening Interpretation: Negative Depression Screening Done: Yes 47545 - PHQ-9 Billing: Yes Source: Developed by Drs. Pranav Quinones, Mally Gutierrez, Luís James and colleagues, with an educational elizabeth from [employer]. Thrive Questionnaire Date Thrive assessed: 10/20/24 I am a: Patient What is your living situation today?: I have a steady place to live Within the past 12 months, did the food you bought not last and you didn't have the money to get more?: Never true Within the past 12 months, did you worry whether your food would run out before you got money to buy more?: Never true Do you have trouble paying for medicines?: No Do you have trouble getting transportation to medical appointments?: No Do you have trouble paying your heating and electricity bill?: No Do you have trouble taking care of your child, family member or friend?: No Do you have trouble with day-to-day activities such as bathing, preparing meals, shopping, managing finances, etc.?: No Are you currently unemployed and looking for a job?: No Are you interested in more education?: No Please select the resources that you would like help with: None Currently or been in a relationship where the following occur: No concerns reported THRIVE Score: 0 LIZZIE-7 AMB Questionnaire LIZZIE-7 Date LIZZIE - 7 assessed: 10/20/24 Feeling nervous, anxious, or on edge: 0 = Not at all Not being able to stop or control worryin = Not at all Worrying too much about different things: 0 = Not at all Trouble relaxin = Not at all Being so restless that it is hard to sit still: 0 = Not at all Becoming easily annoyed or irritable: 0 = Not at all Feeling afraid as if something awful might happen: 0 = Not at all Total LIZZIE-7 score (0-4 normal; 5-9 mild; 10-14 moderate; 15-21 severe): 0 Source: Developed by Drs. Pranav Quinones, Mally Gutierrez, Luís James and colleagues, with an educational elizabeth from [employer]. LIZZIE-7 Assessment Billing LIZZIE-7 Assessment Tool: LIZZIE-7 Assessment 17586 Physical exam (Primary Care) Vital Signs: Last Vital Signs Temp 97.5 F 10/20/24 12:06 Pulse 61 10/20/24 12:06 Resp 12 10/20/24 12:06 BP 115/67 10/20/24 12:06 Pulse Ox 99 10/20/24 12:06 Oxygen Delivery Method Room Air 10/20/24 12:06 BMI result Body Mass Index 32.1 BMI Assessment/Plan discussion: High BMI High, discussed plan: lifestyle Tobacco/Smoking Status: Tobacco use Status Tobacco use date assessed 10/20/24 10/20/24 12:07 Patient Tobacco Use Status Never used Tobacco 10/20/24 12:07 e-Cigarette/Vaping Use Never Used 10/20/24 12:07 PHQ-9: PHQ-9 Score PHQ-9: Total score 0 10/20/24 12:18 Depression Screening Interpretation: Negative Thrive Assessment: Date of Thrive Assessment Date Thrive assessed 10/20/24 10/20/24 12:07 Currently or been in a relationship where the following occur: No concerns reported Coding Level of Care Code Est Pt Level 4 (35232) Est Pt Prev Care 40-64y(79692) Diagnoses Encounter for general adult medical examination without abnormal findings Z00.00 Mild episode of recurrent major depressive disorder F33.0 Major depression episode severity: mild LIZZIE (generalized anxiety disorder) F41.1 Obesity (BMI 30.0-34.9) E66.9 Empty sella E23.6 Menopause Z78.0 History of Papanicolaou smear of cervix Z92.89 Laboratory exam ordered as part of routine general medical examination Z00.00 Skin cancer screening Z12.83 Environmental allergies Z91.09 Drug-induced constipation K59.03 Constipation type: drug induced constipation Additional Codes LIZZIE-7 Assessment Billing - LIZZIE-7 Assessment Tool: LIZZIE-7 Assessment 91773 ([id number]) PHQ-9 - 96794 - PHQ-9 Billing: Yes ([id number]) Assessment & Plan Assessment & Plan (1) Encounter for general adult medical examination without abnormal findings: Onset Date: ~10/20/24 Code(s): Z00.00 - Encounter for general adult medical examination without abnormal findings Category: Medical (2) MDD (major depressive disorder), recurrent episode: Code(s): F33.9 - Major depressive disorder, recurrent, unspecified Category: Medical Qualifiers: Major depression episode severity: mild Qualified Code(s): F33.0 - Major depressive disorder, recurrent, mild (3) LIZZIE (generalized anxiety disorder): Code(s): F41.1 - Generalized anxiety disorder Category: Medical (4) Obesity (BMI 30.0-34.9): Code(s): E66.9 - Obesity, unspecified Category: Medical (5) Empty sella: Comment: NOTED ON C SPINE MRI DONE AT [facility] [place] Code(s): E23.6 - Other disorders of pituitary gland Category: Medical (6) Menopause: Code(s): Z78.0 - Asymptomatic menopausal state Category: Medical (7) History of Papanicolaou smear of cervix: Onset Date: ~2021 Code(s): Z92.89 - Personal history of other medical treatment Category: Medical (8) Laboratory exam ordered as part of routine general medical examination: Code(s): Z00.00 - Encounter for general adult medical examination without abnormal findings Category: Medical (9) Skin cancer screening: Code(s): Z12.83 - Encounter for screening for malignant neoplasm of skin Category: Medical (10) Environmental allergies: Code(s): Z91.09 - Other allergy status, other than to drugs and biological substances Category: Medical (11) Constipation: Code(s): K59.00 - Constipation, unspecified Category: Medical Qualifiers: Constipation type: drug induced constipation Qualified Code(s): K59.03 - Drug induced constipation Plan / Orders: Orders Lipid Panel Today Z00.00 - Encounter for general adult medical examination without abnormal findings Microalbumin, Random (w Creat) Today Z00.00 - Encounter for general adult medical examination without abnormal findings Hemoglobin A1c Today Z00.00 - Encounter for general adult medical examination without abnormal findings Referrals Dermatology Referral Z12.83 - Encounter for screening for malignant neoplasm o f skin SOIL SPECIALIST Referral Z78.0 - Asymptomatic menopausal state, Z92.89 - Personal history of other medical treatment Allergy & Immunology Referral Z91.09 - Other allergy status, other than to drugs and biological substances Patient Instructions: Health screenings for women You should visit your health care provider from time to time, even if you are healthy. The purpose of these visits is to: Screen for medical issues Assess your risk for future medical problems Encourage a healthy lifestyle Update vaccinations and other preventive care services Help you get to know your provider in case of an illness Information Even if you feel fine, you should still see your provider for regular checkups. These visits can help you avoid problems in the future. For example, the only way to find out if you have high blood pressure is to have it checked regularly. High blood sugar and high cholesterol levels also may not have any symptoms in the early stages. A simple blood test can check for these conditions. There are specific times when you should see your provider or receive specific health screenings. The [place] Preventive Services Task Force publishes a list of recommended screenings. Below are screening guidelines for women ages 18 to 39. BLOOD PRESSURE SCREENING Your blood pressure should be checked at least once every 3 to 5 years if: Your blood pressure is in the normal range (top number less than 120 mm Hg and bottom number less than 80 mm Hg) You don't have risk factors for high blood pressure Ask your provider if you need your blood pressure checked more often if: The top number is 120 to 129 mm Hg or the bottom number is 70 to 79 mm Hg You have diabetes, heart disease, kidney problems, are overweight, or have certain other health conditions You have a first-degree relative with high blood pressure You are Black You had high blood pressure during a If the top number is 130 mm Hg or greater or the bottom number is 80 mm Hg or greater, this is considered stage 1 hypertension. Schedule an appointment with your provider to learn how you can reduce your blood pressure. Watch for blood pressure screenings in your area. Ask your provider if you can stop in to have your blood pressure checked. BREAST CANCER SCREENING Experts do not agree about the benefits of breast self-exams in finding breast cancer or saving lives. Talk to your provider about what is best for you. A screening mammogram is not recommended for most women under age 40. Your provider may discuss and recommend mammograms, MRI scans, or ultrasounds if you have an increased risk for breast cancer, such as: A mother or sister who had breast cancer at a young age (most often starting screening earlier than the age the close relative was diagnosed) You carry a high-risk genetic marker CERVICAL CANCER SCREENING Cervical cancer screening should start at age 21 years unless your provider advises otherwise. After the first test: Women ages 21 through 29 should have a Pap test every 3 years. Exoprts do not agree on whether HPV testing is recommended for this age group. Women ages 30 through 65 should be screened with either a Pap test every 3 years or the HPV test every 5 years or both tests every 5 years (called cotesting ). Women who have been treated for precancer (cervical dysplasia) should continue to have Pap tests for 20 years after treatment or until age 65, whichever is longer. If you have had your uterus and cervix removed (total hysterectomy), and you have not been diagnosed with cervical cancer or precancer (high grade cervical neoplasia), you do not need cervical cancer screening. CHOLESTEROL SCREENING Cholesterol screening should begin at: Age 45 for women with no known risk factors for coronary heart disease Age 20 for women with known risk factors for coronary heart disease Repeat cholesterol screening should take place: Every 5 years for women with normal cholesterol levels More often if changes occur in lifestyle (including weight gain and diet) More often if you have diabetes, heart disease, kidney problems, or certain other conditions DIABETES SCREENING You should be screened for diabetes starting at age 35 and then repeated every 3 years if you have no risk factors for diabetes. Screening may need to start earlier and be repeated more often if you have other risk factors for diabetes, such as: You have a first degree relative with diabetes. You are overweight or have obesity. You have high blood pressure, prediabetes, or a history of heart disease. Screening for diabetes should be done if you are planning to become and you are overweight and have other risk factors such as high blood pressure. DENTAL EXAM Go to the dentist once or twice every year for an exam and cleaning. Your dentist will evaluate if you need more frequent visits. EYE EXAM Have an eye exam every 5 to 10 years before age 40. If you have vision problems, have an eye exam every 2 years or more often if recommended by your provider. You should have an eye exam that includes an examination of your retina (back of your eye) at least every year if you have diabetes. IMMUNIZATIONS Commonly needed vaccines include: Flu shot: get one every year. COVID-19 vaccine: ask your provider what is best for you. Tetanus-diphtheria and acellular pertussis (Tdap) vaccine: have one at or after age 19 as one of your tetanus-diphtheria vaccines if you did not receive it as an adolescent. Tetanus-diphtheria: have a booster (or Tdap) every 10 years. Varicella vaccine: receive 2 doses if you never had chickenpox or the varicella vaccine. Hepatitis B vaccine: receive 2, 3, or 4 doses, depending on your exact circumstances. Measles, mumps, and rubella (MMR) vaccine: receive 1 to 2 doses if you are not already immune to MMR. Your provider can tell you if you are immune. Ask your provider about the human papillomavirus (HPV) vaccine if: You have not received the HPV vaccine in the past You have not completed the full vaccine series (you should catch up on this shot) Ask your provider if you should receive other immunizations if you have certain health problems that increase your risk for some diseases such as pneumonia. INFECTIOUS DISEASE SCREENING Women who are sexually active should be screened for chlamydia and gonorrhea up until age 25. Women 25 years and older should be screened for chlamydia and gonorrhea if at high risk. Screening for hepatitis C: All adults ages 18 to 79 should get a one-time test for hepatitis C. people should be screened at every . Screening for human immunodeficiency virus (HIV): All people ages 15 to 65 should get a one-time test for HIV. Depending on your lifestyle and medical history, you may also need to be screened for infections such as syphilis and HIV, as well as other infections. PHYSICAL EXAM All adults should visit their provider from time to time, even if they are healthy. The purpose of these visits is to: Screen for disease Assess your risk of future medical problems Encourage a healthy lifestyle Update your vaccinations and other preventive care services Maintain a relationship with a provider in case of an illness Your height, weight, and BMI should be checked at every exam. During your exam, your provider may ask you about: Depression and anxiety Diet and exercise Alcohol and tobacco use Safety issues, such as using seat belts, smoke detectors, and intimate partner violence Your medicines and risk for interactions SKIN SELF-EXAM Your provider may check your skin for signs of skin cancer, especially if you're at high risk, such as if you: Have had skin cancer before Have close relatives with skin cancer Have a weakened immune system OTHER SCREENING Talk with your provider about colon cancer screening if you have a strong family history of colon cancer or polyps, or if you have had inflammatory bowel disease or polyps yourself. Routine bone density screening of women under 40 is not recommended.
[2024-10-20 12:06] VITALS: BP 115/67; PULSE 61; RESP 12; TEMP 36.4; O2SAT 99; BMI 32.1
== END 2024-10-20 12:52 | disposition home or self-care (01) ==
LOC: HO.HMCFM 12:00
PROVIDERS: PCP Nurse Practitioner Family; Visit Provider Nurse Practitioner Family
DX: Z00.00 Encounter for general adult medical examination without abnormal findings (principal); F33.0 Major depressive disorder, recurrent, mild; E66.9 Obesity, unspecified; Z68.32 Body mass index [BMI] 32.0-32.9, adult; F41.1 Generalized anxiety disorder; E23.6 Other disorders of pituitary gland; Z78.0 Asymptomatic menopausal state; Z92.89 Personal history of other medical treatment; Z12.83 Encounter for screening for malignant neoplasm of skin; Z91.09 Other allergy status, other than to drugs and biological substances; K59.03 Drug induced constipation

== ENCOUNTER → 2024-10-20 11:59 | Outpatient (BNVA) | payer BC, SELFPAY | PROVIDERS: PCP Nurse Practitioner Family; Visit Provider Nurse Practitioner Family | DX: Z00.00 Encounter for general adult medical examination without abnormal findings (principal); G47.33 Obstructive sleep apnea (adult) (pediatric); K21.9 Gastro-esophageal reflux disease without esophagitis; F41.1 Generalized anxiety disorder; E66.9 Obesity, unspecified; M54.2 Cervicalgia; K59.00 Constipation, unspecified; E78.00 Pure hypercholesterolemia, unspecified; F33.0 Major depressive disorder, recurrent, mild; E23.6 Other disorders of pituitary gland; K59.03 Drug induced constipation; Z78.0 Asymptomatic menopausal state; Z92.89 Personal history of other medical treatment; Z91.09 Other allergy status, other than to drugs and biological substances; Z68.32 Body mass index [BMI] 32.0-32.9, adult | CPT/HCPCS: 96127 ==

== ENCOUNTER 2024-10-20 12:58 | Outpatient (REF) | payer BC, SELFPAY ==
[2024-10-20 14:32] LABS: Hemoglobin A1C 116.6206 umol/L; Total Hemoglobin (HGBA1C) 3410.3269 umol/L
[2024-10-20 14:58] LABS: Cholesterol 224 mg/dL (<200); HDL Cholesterol 66 mg/dL (>40); Triglycerides 120 mg/dL (<150)
[2024-10-20 15:09] LABS: Free T4 (Free Thyroxine) 0.96 ng/dL (0.71-1.85); Thyroid Stimulating Hormone 2.34 uIU/mL (0.32-4.0)
[2024-10-20 18:06] LABS: Microalbum/Creatinine Ratio Ur 11.6 ug/mg cr (<30)
== END 2024-10-20 12:59 | disposition home or self-care (01) ==
LOC: HO.WFDLDS 12:58
PROVIDERS: Student in an Organized Health Care Education/Training Program; Visit Provider Nurse Practitioner Family
DX: Z00.00 Encounter for general adult medical examination without abnormal findings (principal); Z13.6 Encounter for screening for cardiovascular disorders; E23.6 Other disorders of pituitary gland; Z13.1 Encounter for screening for diabetes mellitus
CPT/HCPCS: 36415; 80061; 82043; 82570; 83036; 84439; 84443